=== PATIENT | male | born 1985 | race American Indian/Alaskan Native ===

== ENCOUNTER 2017-07-12 09:52 | Emergency (ER) | payer MEDICAID, OTHER ==
[2017-07-12 11:53] VITALS: BP 148/78
--- NOTE | 2017-07-12 13:32 | CT ---
INDICATION: Trauma, loss of consciousness, fall. CT HEAD WITHOUT CONTRAST: Serial contiguous 2.5 and 5-mm sections were obtained through the brain without contrast, 07/12/2017. Findings were compared with 01/04/2013. Total Exam DLP = 949.36 mGy-cm. Thickening of the lining of the right maxillary antrum is noted with thickening of the lining of the posterior wall of the left frontal air cell and, minimally , a few left ethmoidal air cells anteriorly. No gross air-fluid levels or complete opacifications were noted. Paranasal sinuses were otherwise well aerated, as were the right mastoid air cells. The left mastoid air cells are relatively minimal in number, but otherwise unremarkable. No definite cranial fracture site was identified. No shift of midline structures, ventricular abnormalities, significant interval change, or abnormal areas of density were identified. No bleeding site or hematoma was seen. No gross orbital abnormality was seen. IMPRESSION: No acute intracranial abnormality or significant interval change compared with 2012. Relatively minor changes in the paranasal sinuses, some of which were present on the previous examination. Report was called to Dr. Killian at 1138 hours, 07/12/2017. [facility]
--- NOTE | 2017-07-12 13:33 | CT ---
INDICATION: Trauma, loss of consciousness, fall. CT CERVICAL SPINE: Spiral 2.5-mm axial sections were obtained through the cervical spine with sagittal and coronal reconstructions, 07/12/2017. No comparison study was available. Total Exam DLP = 495.83 mGy-cm. Prevertebral space and bone density appear to be normal. The C6-7 level and C7-T1 levels are not as well visualized, as the more cranial levels, due to the large shoulders. There does appear to be slight decrease in disk space at C6-7 with hypertrophic degenerative changes posteriorly producing a mild degree of spinal stenosis at that level. A definite acute fracture or dislocation was not identified, with the odontoid, atlas, and axis intact in appearance. Neural foramina were widely patent. Vertebral elements are well aligned. The apical lung was minimally visualized, appearing normal. IMPRESSION: 1. No acute fracture or dislocation. 2. Degenerative changes and disk disease with relatively minimal spinal stenosis at C6-7. Report was called to Dr. Killian at 1138 hours, 07/12/2017. [facility]
--- NOTE | 2017-07-12 13:37 | CT ---
INDICATION: Trauma, loss of consciousness, fall. CT THORACIC SPINE: Spiral 2.5-mm axial sections were obtained through the thoracic spine with sagittal and coronal reconstructions 07/12/2017. No comparison studies were available. Total Exam DLP = 2108.76 mGy-cm. No evidence of pneumothorax was identified. A minimal dextroconvex scoliosis of the upper middle thoracic spine is noted. Hypertrophic degenerative changes are noted laterally off upper middle and lower middle, as well as lower thoracic vertebral bodies, and also off the anterior aspects with bridging hyperostotic appearance at these levels. The most severe changes are in the lower thoracic spine. Disk spaces appear to be fairly well maintained, as are vertebral body heights. No definite acute fracture or dislocation is identified. Vertebral elements appear to be normally aligned. There is noted mild narrowing of neural foramina at a few of the lower thoracic levels due to hypertrophic spurring off posterior elements. IMPRESSION: 1. No acute fracture or dislocation. 2. Degenerative changes with hypertrophic lipping at T3-4, T8 through T12, most severe changes at the T8 through T12 levels, and impingement on neural foramina at T9-10, and to a lesser extent T10-11. Report was called to Dr. Killian at 1138 hours, 07/12/2017. [facility]
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
== END 2017-07-12 12:00 | disposition home or self-care (01) ==
LOC: FB.ED 09:52
DX: S06.0X0A Concussion without loss of consciousness, initial encounter (principal); S16.1XXA Strain of muscle, fascia and tendon at neck level, initial encounter; S29.012A Strain of muscle and tendon of back wall of thorax, initial encounter; I10 Essential (primary) hypertension; F17.200 Nicotine dependence, unspecified, uncomplicated; E66.9 Obesity, unspecified; Z68.42 Body mass index [BMI] 45.0-49.9, adult; Z98.890 Other specified postprocedural states; Z88.6 Allergy status to analgesic agent; Z88.5 Allergy status to narcotic agent; X58.XXXA Exposure to other specified factors, initial encounter; Y92.219 Unspecified school as the place of occurrence of the external cause; Y99.0 Civilian activity done for income or pay
CPT/HCPCS: 70450; 72125; 72128; 99284

== ENCOUNTER 2017-09-27 15:38 | Emergency (ER) | payer MEDICAID, OTHER ==
[2017-09-27 15:52] VITALS: BP 145/85
--- NOTE | 2017-09-27 16:10 | EDM.PDOC ---
ED HPI GENERAL MEDICAL PROBLEM - General Chief Complaint: ENT Problem Stated Complaint: BROKEN TOOTH-PAIN Time Seen by Provider: 09/27/17 16:00 Source of Information: Reports: Patient History Limitations: Reports: No Limitations - History of Present Illness INITIAL COMMENTS - FREE TEXT/NARRATIVE: Patient is a 31 year old man who had a right upper filling fall out of one of his right upper molars 1 hour ago. Now he is having pain. No fever or chills or other complaints. Onset: Today Onset Date: 09/27/17 Onset Time: 15:00 Duration: Hour(s): (1) Location: Reports: Face (Mouth: Right upper molar.) Quality: Reports: Ache Severity: Moderate Improves with: Reports: None Worsens with: Reports: None Context: Reports: Other (Multiple carious teeth.) Associated Symptoms: Reports: No Other Symptoms Treatments [employer]: Reports: Acetaminophen Right Upper Oral/Mouth Pain Score (Numeric/FACES): 8 - Related Data Allergies Allergy/AdvReac Type Severity Reaction Status Date / Time acetaminophen Allergy Stomach Verified 09/27/17 15:43 [From Tylenol-Codeine #3] Ache codeine phosphate Allergy Stomach Verified 09/27/17 15:43 [From Tylenol-Codeine #3] Ache ketorolac tromethamine Allergy Stomach Verified 09/27/17 15:43 [From Toradol] Upset tramadol Allergy Vomiting Verified 09/27/17 15:43 Home Meds: Home Meds Gabapentin [Neurontin] 900 mg PO TID 03/10/16 [History] Citalopram [Celexa] 20 mg PO DAILY 06/11/16 [History] Amoxicillin 500 mg PO TID 10 Days #30 tab 09/27/17 [Rx] Past Medical History - Past Health History Medical/Surgical History: Denies Medical/Surgical History Cardiovascular History: Reports: Hypertension Respiratory History: Reports: Asthma Musculoskeletal History: Reports: Fracture Neurological History: Reports: Neuropathy, Peripheral, Other (See Below) Other Neuro History: 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 Psychiatric History: Reports: Depression Social & Family History - Family History Family Medical History: Noncontributory - Tobacco Use Smoking Status *Q: Current Every Day Smoker Years of Tobacco use: 20 Packs/Tins Daily: 1 Used Tobacco, but Quit: No Second Hand Smoke Exposure: Yes - Caffeine Use Caffeine Use: Reports: Soda - Alcohol Use Days Per Week of Alcohol Use: 0 - Recreational Drug Use Recreational Drug Use: No Drug Use in Last 12 Months: Yes Recreational Drug Type: Reports: Marijuana/Hashish Recreational Drug Use Frequency: Weekly - Living Situation & Occupation Living situation: Reports: Single, Other ED ROS ENT - Review of Systems Review Of Systems: See Below Constitutional: Reports: No Symptoms HEENT: Reports: Dental Pain Respiratory: Reports: No Symptoms Cardiovascular: Reports: No Symptoms Endocrine: Reports: No Symptoms GI/Abdominal: Reports: No Symptoms : Reports: No Symptoms Musculoskeletal: Reports: No Symptoms Skin: Reports: No Symptoms Neurological: Reports: No Symptoms Psychiatric: Reports: No Symptoms Hematologic/Lymphatic: Reports: No Symptoms Immunologic: Reports: No Symptoms ED EXAM, ENT - Physical Exam Exam: See Below Exam Limited By: No Limitations General Appearance: Alert, WD/WN, No Apparent Distress Eye Exam: Bilateral Eye: EOMI, Normal Fundi, Normal Inspection, PERRL Ears: Normal External Exam, Normal Canal, Hearing Grossly Normal, Normal TMs Nose: Normal Inspection, Normal Mucousa, No Blood Mouth/Throat: Dental Abcess, Dental Pain, Dental Tenderness, Dental Trauma Head: Atraumatic, Normocephalic Neck: Normal Inspection Respiratory/Chest: No Respiratory Distress, Lungs Clear, Normal Breath Sounds, No Accessory Muscle Use, Chest Non-Tender Cardiovascular: Normal Peripheral Pulses, Regular Rate, Rhythm, No Edema, No Gallop, No JVD, No Murmur, No Rub GI/Abdominal: Normal Bowel Sounds, Soft, Non-Tender, No Organomegaly, No Distention, No Abnormal Bruit, No Mass Back: Normal Inspection, Full Range of Motion Extremities: Normal Inspection, Normal Range of Motion, Non-Tender, No Pedal Edema, Normal Capillary Refill Neurological: Alert Course - Vital Signs Text/Narrative:: Unremarkable ED course. He is allergic to NSAIDS, Tramadol and Narcotics. He will be put on Amoxicillin 500 mg po tid x 10 days, #30, no refills. Recheck in 2-3 days or prn. He will follow up with his PCP today for pain medications. Last Recorded V/S: Last Vital Signs Temp 37.2 C 09/27/17 15:51 Pulse 113 H 09/27/17 15:51 Resp 20 09/27/17 15:51 BP 145/85 H 09/27/17 15:51 Pulse Ox 98 09/27/17 15:51 Departure - Departure Time of Disposition: 16:16 Disposition: Home, Self-Care 01 Condition: Good Clinical Impression: Dental abscess, Nonrestorable carious tooth - Discharge Information Referrals: PCP,None [Primary Care Provider] -
== END 2017-09-27 16:28 | disposition home or self-care (01) ==
LOC: FB.ED 15:38
DX: K04.7 Periapical abscess without sinus (principal); K02.9 Dental caries, unspecified; F17.210 Nicotine dependence, cigarettes, uncomplicated; I10 Essential (primary) hypertension; J45.909 Unspecified asthma, uncomplicated; Z79.899 Other long term (current) drug therapy; Z88.6 Allergy status to analgesic agent; Z88.5 Allergy status to narcotic agent
CPT/HCPCS: 99282

== ENCOUNTER 2018-01-03 17:12 | Emergency (ER) | payer MEDICAID ==
[2018-01-03 17:25] VITALS: BP 148/91
--- NOTE | 2018-01-03 17:51 | EDM.PDOC ---
ED HPI GENERAL MEDICAL PROBLEM - General Chief Complaint: General Stated Complaint: DENTAL PAIN Time Seen by Provider: 01/03/18 17:25 Source of Information: Reports: Patient History Limitations: Reports: No Limitations - History of Present Illness INITIAL COMMENTS - FREE TEXT/NARRATIVE: 32 y.o.NA male came to hour ED a few hours after he was seen by his dentist who diagnosed him with a tooth abscess. Pt is on Abx, Motrin and "stronger pain meds ". Pt stated he feels the abscess is draining and his right facial swelling is improving but his pain is till severe, unbearable. No N/V/D or other acute medical issues. BP 148/91 pulse 78 temp 37.1 RR 18 Pulse ox 98% on RA. Onset Date: 12/27/17 Onset Time: 08:00 Duration: Day(s):, Getting Worse Location: Reports: Face Quality: Reports: Ache, Burning, Dull, Pressure Severity: Mild Improves with: Reports: Medication Worsens with: Reports: Movement Context: Reports: Other (abscessed tooth) Right Oral/Mouth Pain Score (Numeric/FACES): 6 - Related Data Allergies Allergy/AdvReac Type Severity Reaction Status Date / Time acetaminophen Allergy Stomach Verified 01/03/18 17:23 [From Tylenol-Codeine #3] Ache codeine phosphate Allergy Stomach Verified 01/03/18 17:23 [From Tylenol-Codeine #3] Ache ketorolac tromethamine Allergy Stomach Verified 01/03/18 17:23 [From Toradol] Upset tramadol Allergy Vomiting Verified 01/03/18 17:23 Home Meds: Home Meds Gabapentin [Neurontin] 900 mg PO TID 03/10/16 [History] Citalopram [Celexa] 20 mg PO DAILY 06/11/16 [History] Hydrocodone/Acetaminophen [[place] 7.5-325 Tablet] 1 each PO DAILY PRN #3 tablet 01/03/18 [Rx] Past Medical History - Past Health History Medical/Surgical History: Denies Medical/Surgical History Cardiovascular History: Reports: Hypertension Respiratory History: Reports: Asthma Musculoskeletal History: Reports: Fracture Neurological History: Reports: Neuropathy, Peripheral, Other (See Below) Other Neuro History: 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 Psychiatric History: Reports: Depression - Past Surgical History HEENT Surgical History: Reports: Oral Surgery Social & Family History - Family History Family Medical History: Noncontributory - Tobacco Use Smoking Status *Q: Current Every Day Smoker Years of Tobacco use: 20 Packs/Tins Daily: 0.5 Used Tobacco, but Quit: No Second Hand Smoke Exposure: Yes - Caffeine Use Caffeine Use: Reports: Soda - Alcohol Use Days Per Week of Alcohol Use: 0 - Recreational Drug Use Recreational Drug Use: No Drug Use in Last 12 Months: Yes Recreational Drug Type: Reports: Marijuana/Hashish Recreational Drug Use Frequency: Weekly - Living Situation & Occupation Living situation: Reports: Single, Other ED ROS GENERAL - Review of Systems Review Of Systems: See Below Constitutional: Reports: No Symptoms HEENT: Reports: Dental Pain Respiratory: Reports: No Symptoms Cardiovascular: Reports: No Symptoms Endocrine: Reports: No Symptoms GI/Abdominal: Reports: No Symptoms : Reports: No Symptoms Musculoskeletal: Reports: No Symptoms Skin: Reports: No Symptoms Neurological: Reports: No Symptoms Psychiatric: Reports: No Symptoms Hematologic/Lymphatic: Reports: No Symptoms Immunologic: Reports: No Symptoms ED EXAM, GENERAL - Physical Exam Exam: See Below Exam Limited By: No Limitations General Appearance: Alert, WD/WN, Mild Distress, Moderate Distress Eye Exam: Bilateral Eye: Normal Inspection Ears: Normal External Exam Ear Exam: Bilateral Ear: Auricle Normal Nose: Normal Inspection, Normal Mucosa Throat/Mouth: Other (thhoth abscessed) Head: Atraumatic, Facial Swelling Neck: Normal Inspection Respiratory/Chest: No Respiratory Distress, Lungs Clear, Normal Breath Sounds, No Accessory Muscle Use, Chest Non-Tender Cardiovascular: Normal Peripheral Pulses, Regular Rate, Rhythm, No Edema, No Gallop, No JVD, No Murmur, No Rub Peripheral Pulses: 1+: Radial (R) GI/Abdominal: Normal Bowel Sounds (Male) Exam: Deferred Rectal (Males) Exam: Deferred Back Exam: Normal Inspection, Full Range of Motion Extremities: Normal Inspection, Normal Range of Motion, Non-Tender, No Pedal Edema, Normal Capillary Refill Neurological: Alert, Oriented, CN II-XII Intact, Normal Cognition, Normal Gait, No Motor/Sensory Deficits Psychiatric: Normal Affect, Normal Mood Skin Exam: Warm, Dry, Intact, Normal Color, No Rash Lymphatic: No Adenopathy Course - Vital Signs Text/Narrative:: 32 y.o.NA male came to hour ED a few hours after he was seen by his dentist who diagnosed him with a tooth abscess. Pt is on Abx, Motrin and "stronger pain meds ". Pt stated he feels the abscess is draining and his right facial swelling is improving but his pain is till severe, unbearable. No N/V/D or other acute medical issues. BP 148/91 pulse 78 temp 37.1 RR 18 Pulse ox 98% on RA. RE: Morbid obese NA with R facial swelling and pain, sinus tenderness, on Abx Impression: H/O Sinusitis, S/P tooth extraction, H/O toothabscess, Facial pain Tx: [place] one tabl Reexam: Improved Plan: D/C with instructions Last Recorded V/S: Last Vital Signs Temp 37.0 C 01/03/18 17:25 Pulse 92 01/03/18 17:25 Resp 18 01/03/18 17:25 BP 148/91 H 01/03/18 17:25 Pulse Ox 98 01/03/18 17:25 - Orders/Labs/Meds Meds: Medications Discontinued Medications Generic Name Dose Route Start Last Admin Trade Name Teq PRN Reason Stop Dose Admin Hydrocodone Bitart/Acetaminophen 1 tab 01/03/18 18:44 01/03/18 18:48 [place] 325-5 Mg PO 01/03/18 18:45 1 tab ONETIME STA Administration Departure - Departure Time of Disposition: 17:46 Disposition: Home, Self-Care 01 Condition: Good Clinical Impression: Tooth ache - Discharge Information Prescriptions: Hydrocodone/Acetaminophen [[place] 7.5-325 Tablet] 1 each PO DAILY PRN #3 tablet PRN Reason: severe pain Referrals: Roxana Claero MD [Primary Care Provider] - Forms: ED Department Discharge Additional Instructions: Please cont yoiur Abx, Motrin etx and f/u with your Dentist, come back if your symptoms get worse acutely
[2018-01-03] MEDS ORDERED: Acetaminophen/HYDROcodone 325-5 MG Tab PO STA (18:44)
== END 2018-01-03 17:55 | disposition home or self-care (01) ==
LOC: FB.ED 17:12
DX: K08.89 Other specified disorders of teeth and supporting structures (principal); K08.409 Partial loss of teeth, unspecified cause, unspecified class; I10 Essential (primary) hypertension; G62.9 Polyneuropathy, unspecified; F17.210 Nicotine dependence, cigarettes, uncomplicated; Z87.09 Personal history of other diseases of the respiratory system; Z88.6 Allergy status to analgesic agent; Z88.5 Allergy status to narcotic agent; Z88.8 Allergy status to other drugs, medicaments and biological substances; Z79.899 Other long term (current) drug therapy
CPT/HCPCS: 99283; A9270

== ENCOUNTER 2018-01-28 16:48 | Emergency (ER) | payer MEDICAID ==
[2018-01-28 17:00] VITALS: BP 152/84
--- NOTE | 2018-01-28 17:30 | EDM.PDOC ---
ED HPI GENERAL MEDICAL PROBLEM - General Chief Complaint: General Stated Complaint: TOOTH/JAW PAIN Time Seen by Provider: 01/28/18 17:05 Source of Information: Reports: Patient History Limitations: Reports: No Limitations - History of Present Illness INITIAL COMMENTS - FREE TEXT/NARRATIVE: c/o tooth pain pt at dentist Dr Anderson in [place] 1m ago and had a tooth pulled, as per [place] he filled #10 tabs of HC/apap 5/325 mg on 01/[address] Anderson and #3 tabs of HC/apap 7.5/325 mg on 01/[address] Mcghee he had no other opiates filled in past 1y he does take gabapentin 900 mg tid for chronic nerve pain of R great toe that fx after tire rim fell on it and he had pins x 2 and then fusion pt return to dentist at [facility] today and had another tooth pulled, given Rx for ibuprofen, not sure if it was 600 or 800 mg, he did take one and it did not help, was not given an antb, was not given hydrocodone pt states he had pus draining from the tooth that tooth 2d ago and has inc'd pain in the past 2d Tooth/Teeth Pain Score (Numeric/FACES): 8 - Related Data Allergies Allergy/AdvReac Type Severity Reaction Status Date / Time acetaminophen Allergy Stomach Verified 01/28/18 16:58 [From Tylenol-Codeine #3] Ache codeine phosphate Allergy Stomach Verified 01/28/18 16:58 [From Tylenol-Codeine #3] Ache ketorolac tromethamine Allergy Stomach Verified 01/28/18 16:58 [From Toradol] Upset tramadol Allergy Vomiting Verified 01/28/18 16:58 Home Meds: Home Meds Gabapentin [Neurontin] 900 mg PO TID 03/10/16 [History] Citalopram [Celexa] 20 mg PO DAILY 06/11/16 [History] Amoxicillin 500 mg PO TID #21 tab 01/28/18 [Rx] Hydrocodone/Acetaminophen [Hydrocodon-Acetaminoph 7.5-325] 1 each PO Q6H #5 tablet 01/28/18 [Rx] Past Medical History - Past Health History Medical/Surgical History: Denies Medical/Surgical History Cardiovascular History: Reports: Hypertension Respiratory History: Reports: Asthma Musculoskeletal History: Reports: Fracture Neurological History: Reports: Neuropathy, Peripheral, Other (See Below) Other Neuro History: 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 Psychiatric History: Reports: Depression - Past Surgical History HEENT Surgical History: Reports: Oral Surgery Social & Family History - Family History Family Medical History: Noncontributory - Tobacco Use Smoking Status *Q: Current Every Day Smoker Years of Tobacco use: 20 Packs/Tins Daily: 0.5 Used Tobacco, but Quit: No Second Hand Smoke Exposure: Yes - Caffeine Use Caffeine Use: Reports: Soda - Alcohol Use Days Per Week of Alcohol Use: 0 - Recreational Drug Use Recreational Drug Use: No Drug Use in Last 12 Months: Yes Recreational Drug Type: Reports: Marijuana/Hashish Recreational Drug Use Frequency: Weekly - Living Situation & Occupation Living situation: Reports: Single, Other ED ROS GENERAL - Review of Systems Review Of Systems: See Below Constitutional: Reports: No Symptoms HEENT: Reports: Other (dental pain) Respiratory: Reports: No Symptoms Cardiovascular: Reports: No Symptoms Endocrine: Reports: No Symptoms GI/Abdominal: Reports: No Symptoms : Reports: No Symptoms Musculoskeletal: Reports: No Symptoms Skin: Reports: No Symptoms Neurological: Reports: No Symptoms Psychiatric: Reports: No Symptoms Hematologic/Lymphatic: Reports: No Symptoms Immunologic: Reports: No Symptoms ED EXAM, GENERAL - Physical Exam Exam: See Below Exam Limited By: No Limitations General Appearance: Alert, WD/WN, Mild Distress Nose: Normal Inspection, Normal Mucosa, No Blood Throat/Mouth: Other (tooth #5 missing, no LNs, empty socket, no STS, pt does have a cotton gauze in the tooth) Neck: Normal Inspection, Supple, Non-Tender, Full Range of Motion. No: Lymphadenopathy (R), Lymphadenopathy (L) Respiratory/Chest: No Respiratory Distress Cardiovascular: Regular Rate, Rhythm Course - Vital Signs Last Recorded V/S: Last Vital Signs Temp 36.9 C 01/28/18 16:59 Pulse 95 01/28/18 16:59 Resp 18 01/28/18 16:59 BP 152/84 H 01/28/18 16:59 Pulse Ox 97 01/28/18 16:59 Departure - Departure Time of Disposition: 17:25 Disposition: Home, Self-Care 01 Condition: Good Clinical Impression: Pain, dental - Discharge Information Prescriptions: Amoxicillin 500 mg PO TID #21 tab Hydrocodone/Acetaminophen [Hydrocodon-Acetaminoph 7.5-325] 1 each PO Q6H #5 tablet Instructions: Dental Extraction, [id number], Dental Extraction, Dental Abscess Referrals: PCP,None [Primary Care Provider] - Forms: ED Department Discharge Additional Instructions: For pain, continue the ibuprofen 3-4 times a day as prescribed for the next several days. For pain, as needed, take hydrocodone with acetaminophen 7.5/325 mg 1 tab every 6 hours. No alcohol. For infection, take amoxicillin 500 mg 1 tab 3 times a day. Use ice for 10 minutes every 2 hours as needed. Call your Physician or Return to Emergency Department if: * Your condition worsens in any way. * You develop fever greater than 100.4. * You have vomiting that does not stop with medications. * You have pain that is not controlled with medications.
== END 2018-01-28 17:30 | disposition home or self-care (01) ==
LOC: FB.ED 16:48
DX: K08.89 Other specified disorders of teeth and supporting structures (principal); I10 Essential (primary) hypertension; F17.210 Nicotine dependence, cigarettes, uncomplicated; Z79.899 Other long term (current) drug therapy; Z88.5 Allergy status to narcotic agent
CPT/HCPCS: 99283

== ENCOUNTER 2019-01-30 18:22 | Emergency (ER) | payer MEDICAID, OTHER ==
[2019-01-30 19:05] VITALS: BP 146/86
[2019-01-30] MEDS ORDERED: Acetaminophen 500 MG Tab PO ONE (19:39)
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
== END 2019-01-30 21:25 | disposition home or self-care (01) ==
LOC: FB.ED 18:22
DX: T75.4XXA Electrocution, initial encounter (principal); S09.90XA Unspecified injury of head, initial encounter; R07.89 Other chest pain; F17.210 Nicotine dependence, cigarettes, uncomplicated; I10 Essential (primary) hypertension; J45.909 Unspecified asthma, uncomplicated; F41.9 Anxiety disorder, unspecified; F32.9 Major depressive disorder, single episode, unspecified; Z79.899 Other long term (current) drug therapy; Z88.5 Allergy status to narcotic agent; Z88.6 Allergy status to analgesic agent; Z88.8 Allergy status to other drugs, medicaments and biological substances; W86.8XXA Exposure to other electric current, initial encounter
CPT/HCPCS: 36415; 70450; 71046; 72125; 80053; 84484; 85025; 85610; 93005; 99285-25; A9270-GY

== ENCOUNTER 2019-03-23 20:01 | Emergency (ER) | payer MEDICAID ==
[2019-03-23] MEDS ORDERED: Acetaminophen/HYDROcodone 325-5 MG Tab PO ONE ×2 (20:02→22:33)
[2019-03-23] MEDS ORDERED: Lidocaine 1% 20 ML MDV INJECT ONE (21:53)
[2019-03-23] MEDS ORDERED: Cephalexin 500 MG Cap PO ONE (22:28)
--- NOTE | 2019-03-23 22:34 | EDM.PDOC ---
ED HPI GENERAL MEDICAL PROBLEM - General Stated Complaint: TOE INFECTION Time Seen by Provider: 03/23/19 21:05 Source of Information: Reports: Patient History Limitations: Reports: No Limitations - History of Present Illness INITIAL COMMENTS - FREE TEXT/NARRATIVE: 33-year-old male with what he felt was the beginning of an ingrown nail on his left great toe. His pulled a portion of the lateral aspect of the nail off on Saturday of this last week and since that time he has had increasing pain and increasing redness in the left great toe. Now he has pain and some redness that extends into the distal top of the left foot. He has had no fevers or chills. His had no nausea or vomiting. He rates the pain as a 7/10. It is a sharp pain that shoots up his foot and is sore in the top of his foot. No nausea or vomiting. He's been eating and drinking normally. His 5-year-old child stepped on his left great toe tonight and that made the pain much worse and prompted him to come in for evaluation. There are no other associated signs or symptoms. There are no other modifying factors. Onset: Other (As above) Duration: Getting Worse Location: Reports: Lower Extremity, Left (Left great toe and foot) Quality: Reports: Sharp (And shooting) Severity: Moderate Improves with: Reports: Rest Worsens with: Reports: Other (Palpation), Movement Context: Reports: Other (Not applicable) Associated Symptoms: Reports: Other (Redness in the left foot) Treatments BUSINESS SERVICES MANAGER: Reports: Other (see below) (Nothing) - Related Data Allergies Allergy/AdvReac Type Severity Reaction Status Date / Time codeine phosphate Allergy Stomach Verified 10/14/18 16:35 [From Tylenol-Codeine #3] Ache ketorolac tromethamine Allergy Stomach Verified 10/14/18 16:35 [From Toradol] Upset lisinopril Allergy Cough Verified 10/21/18 18:00 tramadol Allergy Vomiting Verified 10/14/18 16:35 Home Meds: Home Meds Gabapentin [Neurontin] 900 mg PO TID 03/10/16 [History] DULoxetine [Cymbalta] 60 mg PO DAILY 10/12/18 [History] Losartan/Hydrochlorothiazide [Losartan-HCTZ 100-12.5 MG] 1 each PO DAILY [History] Hydrocodone/Acetaminophen [[place] 5-325 Tablet] 1 each PO Q6HR #10 tablet [Rx] Cephalexin [Keflex] 1,000 mg PO TID 7 Days #42 capsule 03/23/19 [Rx] Mupirocin Oint [Bactroban Oint] 22 gm TP BID #1 tube 03/23/19 [Rx] Past Medical History Cardiovascular History: Reports: Hypertension Respiratory History: Reports: Asthma Gastrointestinal History: Reports: PUD Musculoskeletal History: Reports: Fracture Other Musculoskeletal History: fx R gt toe Neurological History: Reports: Concussion, Neuropathy, Peripheral (On gabapentin ), Other (See Below) Other Neuro History: 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 Psychiatric History: Reports: Anxiety, Depression, Panic Attack Endocrine/Metabolic History: Reports: Obesity/BMI 30+ - Infectious Disease History Infectious Disease History: Reports: Chicken Pox, MRSA - Past Surgical History HEENT Surgical History: Reports: Oral Surgery Musculoskeletal Surgical History: Reports: Other (See Below) Other Musculoskeletal Surgeries/Procedures:: r toe surgery Social & Family History - Tobacco Use Smoking Status *Q: Unknown Ever Smoked (Nonsmoker) - Caffeine Use Caffeine Use: Reports: Soda - Alcohol Use Alcohol Use History: Yes Alcohol Use in Last Twelve Months: Yes Alcohol Use Comment: Patient reports he is an alcoholic and has had no use for the past 6-8 months. - Living Situation & Occupation Living situation: Reports: Single ED ROS GENERAL - Review of Systems Review Of Systems: See Below Constitutional: Reports: No Symptoms HEENT: Reports: No Symptoms Respiratory: Reports: No Symptoms Cardiovascular: Reports: No Symptoms GI/Abdominal: Reports: No Symptoms : Reports: No Symptoms Musculoskeletal: Reports: Other (Left great toe pain with redness) Skin: Reports: Other (Redness of left great toe that extends into the top of the left foot.) Neurological: Reports: No Symptoms Hematologic/Lymphatic: Reports: No Symptoms Immunologic: Reports: No Symptoms ED EXAM, GENERAL - Physical Exam Exam: See Below Exam Limited By: No Limitations General Appearance: Alert, Mild Distress, Obese Eye Exam: Bilateral Eye: EOMI, Normal Inspection, PERRL Ears: Normal External Exam, Hearing Grossly Normal Nose: Normal Inspection, Normal Mucosa, No Blood Throat/Mouth: Normal Inspection, Normal Voice, No Airway Compromise Head: Atraumatic, Normocephalic Neck: Normal Inspection Respiratory/Chest: No Respiratory Distress, Lungs Clear, Normal Breath Sounds, No Accessory Muscle Use, Chest Non-Tender Cardiovascular: Normal Peripheral Pulses, Regular Rate, Rhythm, No JVD Peripheral Pulses: 2+: Dorsalis Pedis (L) GI/Abdominal: Normal Bowel Sounds, Soft, Non-Tender Back Exam: Normal Inspection Extremities: Other (Tenderness of great toe with ingrown nail and erythema. The erythema extends to the top of the left foot. There is no crepitus. There is no subcutaneous emphysema.) Neurological: Alert, Oriented, CN II-XII Intact, Normal Cognition, No Motor/ Sensory Deficits Lymphatic: No Adenopathy ED GENERAL MEDICAL PROCEDURES - Additional/Other Procedure(s) Other (Free Text) Procedure(s): After informed verbal consent was obtained from the patient, the left great toe was anesthetized doing both a digital block and local anesthesia using 1% lidocaine 8 mL's. There was good anesthesia no complications. The toe was then prepped with Betadine. The lateral one fourth of the toenail was elevated and using iris scissors was dissected and removed. The area was then opened up using hemostats. No pus was expressed. The area was then copiously irrigated with a 9/10 normal saline. The patient tolerated this well. There were no apparent complications. An appropriate supportive dressing was applied by the nursing staff. Course - Orders/Labs/Meds Labs: Laboratory Tests 03/23/19 03/23/19 03/23/19 Range/Units 21:30 21:30 21:30 WBC 10.1 (4.5-12.0) X10-3/uL RBC 5.54 (4.30-5.75) x10(6)uL Hgb 15.9 (13.5-17.8) g/dL Hct 46.9 (30.0-51.3) % MCV 84.7 (80-96) fL MCH 28.7 (27.7-33.6) pg MCHC 33.9 (32.2-35.4) g/dL RDW 13.0 (11.5-15.5) % Plt Count 276 (125-369) X10(3)uL MPV 8.1 (7.4-10.4) fL Neut % (Auto) 62.8 (46-82) % Lymph % (Auto) 27.4 (13-37) % [place] % (Auto) 5.6 (4-12) % Eos % (Auto) 4 (1.0-5.0) % Baso % (Auto) 1 (0-2) % Neut # (Auto) 6.2 (1.6-8.3) # Lymph # (Auto) 2.8 (0.6-5.0) # [place] # (Auto) 0.6 (0.0-1.3) # Eos # (Auto) 0.4 (0.0-0.8) # Baso # (Auto) 0.1 (0.0-0.2) # Sodium 141 (135-145) mmol/L Potassium 4.2 (3.5-5.3) mmol/L Chloride 103 (100-110) mmol/L Carbon Dioxide 29 (21-32) mmol/L BUN 26 H (7-18) mg/dL Creatinine 1.3 (0.70-1.30) mg/dL Est Cr Clr Drug Dosing TNP Estimated GFR (MDRD) > 60 (>60) BUN/Creatinine Ratio 20.0 (9-20) Glucose 102 (80-116) mg/dL Calcium 9.3 (8.6-10.2) mg/dL C-Reactive Protein 0.6 (0.5-0.9) mg/dL Meds: Medications Discontinued Medications Generic Name Dose Route Start Last Admin Trade Name Freq PRN Reason Stop Dose Admin Hydrocodone Bitart/Acetaminophen 2 tab 03/23/19 22:33 03/23/19 22:38 [place] 325-5 Mg PO 03/23/19 22:34 2 tab ONETIME ONE Administration Hydrocodone Bitart/Acetaminophen Confirm 03/23/19 22:40 03/23/19 22:47 [place] 325-5 Mg Administered 03/23/19 22:41 Not Given Dose 1 tab .ROUTE .STK-MED ONE Cephalexin 1,000 mg 03/23/19 22:28 03/23/19 22:41 Keflex PO 03/23/19 22:29 1,000 mg ONETIME ONE Administration Lidocaine HCl 20 ml 03/23/19 21:53 Xylocaine 1% INJECT 03/23/19 21:54 ONETIME ONE Departure - Departure Time of Disposition: 22:30 Disposition: Home, Self-Care 01 Condition: Good Clinical Impression: Ingrown left greater toenail, Cellulitis of left foot - Discharge Information Prescriptions: Cephalexin [Keflex] 1,000 mg PO TID 7 Days #42 capsule Mupirocin Oint [Bactroban Oint] 22 gm TP BID #1 tube Instructions: Cellulitis, Adult, Fingernail or Toenail Removal, Adult Referrals: PCP,None [Primary Care Provider] - Additional Instructions: You had an ingrown left great toenail with an associated infection called a cellulitis. I removed one fourth of your toenail (the ingrown portion). You should clean this wound soap and water and apply the Bactroban ointment to it twice daily. Medication as prescribed (Keflex, hydrocodone 5/325). You should take probiotics or eat yogurt daily while you are on the antibiotics. Follow-up with your primary doctor as needed. Back to the emergency department for marked increase in pain, increasing or spreading redness, high fever or any other concerning sign or symptom.
[2019-03-23] MEDS ORDERED: Acetaminophen/HYDROcodone 325-5 MG Tab ONE (22:40)
[2019-03-24 10:21] VITALS: BP 144/87
== END 2019-03-23 23:00 | disposition home or self-care (01) ==
LOC: FB.ED 20:01
DX: L60.0 Ingrowing nail (principal); I10 Essential (primary) hypertension; J45.909 Unspecified asthma, uncomplicated; Z88.5 Allergy status to narcotic agent; Z88.8 Allergy status to other drugs, medicaments and biological substances; Z79.899 Other long term (current) drug therapy
CPT/HCPCS: 11750; 36415; 80048; 85025; 86140; 99283; A9270

== ENCOUNTER 2019-05-06 20:21 | Emergency (ER) | payer MEDICAID ==
[2019-05-06] MEDS ORDERED: Acetaminophen/HYDROcodone 325-5 MG Tab PO ONE (20:22)
[2019-05-06 20:40] VITALS: BP 147/83
--- NOTE | 2019-05-06 20:56 | EDM.PDOC ---
ED HPI GENERAL MEDICAL PROBLEM - General Chief Complaint: ENT Problem Stated Complaint: TOOTHACHE Time Seen by Provider: 05/06/19 20:51 Source of Information: Reports: Patient History Limitations: Reports: No Limitations - History of Present Illness INITIAL COMMENTS - FREE TEXT/NARRATIVE: Complains of left upper dental pain after clenched teeth because he became upset. Took advil w/o improvement. Patient requests stronger pain medication until he can follow up with a dentist tomorrow. 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 Pain Score (Numeric/FACES): 8 - Related Data Allergies Allergy/AdvReac Type Severity Reaction Status Date / Time codeine phosphate Allergy Stomach Verified 03/24/19 10:42 [From Tylenol-Codeine #3] Ache ketorolac tromethamine Allergy Stomach Verified 03/24/19 10:42 [From Toradol] Upset lisinopril Allergy Cough Verified 03/24/19 10:42 tramadol Allergy Vomiting Verified 03/24/19 10:42 Home Meds: Home Meds Gabapentin [Neurontin] 900 mg PO TID 03/10/16 [History] Losartan/Hydrochlorothiazide [Losartan-HCTZ 100-12.5 MG] 1 each PO DAILY [History] Cephalexin [Keflex] 1,000 mg PO TID 7 Days #42 capsule 03/23/19 [Rx] Mupirocin Oint [Bactroban Oint] 22 gm TP BID #1 tube 03/23/19 [Rx] Gabapentin [Neurontin] 900 mg PO TID 03/24/19 [History] Venlafaxine HCl [Venlafaxine ER] 75 mg PO DAILY 03/24/19 [History] busPIRone [Buspar] 10 mg PO TID 03/24/19 [History] Past Medical History Cardiovascular History: Reports: Hypertension Respiratory History: Reports: Asthma Gastrointestinal History: Reports: PUD Musculoskeletal History: Reports: Fracture Other Musculoskeletal History: fx R gt toe Neurological History: Reports: Concussion, Neuropathy, Peripheral, Other (See Below) Other Neuro History: 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 Psychiatric History: Reports: Anxiety, Depression, Panic Attack Endocrine/Metabolic History: Reports: Obesity/BMI 30+ - Infectious Disease History Infectious Disease History: Reports: Chicken Pox, MRSA - Past Surgical History HEENT Surgical History: Reports: Oral Surgery Musculoskeletal Surgical History: Reports: Other (See Below) Other Musculoskeletal Surgeries/Procedures:: r toe surgery Social & Family History - Family History Family Medical History: Noncontributory - Tobacco Use Smoking Status *Q: Former Smoker Used Tobacco, but Quit: Yes Month/Year Tobacco Last Used: 02/2019 - Caffeine Use Caffeine Use: Reports: Soda - Recreational Drug Use Recreational Drug Use: No - Living Situation & Occupation Living situation: Reports: Single ED ROS ENT - Review of Systems Review Of Systems: ROS reveals no pertinent complaints other than HPI. ED EXAM, ENT - Physical Exam Exam: See Below Exam Limited By: No Limitations General Appearance: Alert, WD/WN, No Apparent Distress Ears: Normal External Exam Nose: Normal Inspection Mouth/Throat: Dental Pain (tooth #11, no fractures or caries noted.) Head: Atraumatic, Normocephalic Neck: Supple Respiratory/Chest: No Respiratory Distress Neurological: Alert, Normal Cognition, No Motor/Sensory Deficits Psychiatric: Normal Affect, Normal Mood Skin: Warm, Dry, Intact Course - Vital Signs Last Recorded V/S: Last Vital Signs Temp 37.1 C 05/06/19 20:21 Pulse 118 H 05/06/19 20:21 Resp 17 05/06/19 20:21 BP 147/83 H 05/06/19 20:21 Pulse Ox 96 05/06/19 20:21 - Re-Assessments/Exams Free Text/Narrative Re-Assessment/Exam: 05/06/19 20:54 Sent home with Piedad Gardiner/Syed #[id number], to take 1-2 tabs q6h as needed for pain. Departure - Departure Time of Disposition: 20:55 Disposition: Home, Self-Care 01 Condition: Good Clinical Impression: Pain, dental - Discharge Information *PRESCRIPTION DRUG MONITORING PROGRAM REVIEWED*: Yes *COPY OF PRESCRIPTION DRUG MONITORING REPORT IN PATIENT VALERIE: No Referrals: PCP,Unknown [Primary Care Provider] - Additional Instructions: Continue Advil, may also take Hydocodone in addition as needed to control pain. Follow up with a Dentist tomorrow.
== END 2019-05-06 21:01 | disposition home or self-care (01) ==
LOC: FB.ED 20:21
DX: K08.89 Other specified disorders of teeth and supporting structures (principal); I10 Essential (primary) hypertension; F41.9 Anxiety disorder, unspecified; F32.9 Major depressive disorder, single episode, unspecified; J45.909 Unspecified asthma, uncomplicated; Z87.891 Personal history of nicotine dependence; Z79.899 Other long term (current) drug therapy; Z88.5 Allergy status to narcotic agent; Z88.6 Allergy status to analgesic agent; Z88.8 Allergy status to other drugs, medicaments and biological substances
CPT/HCPCS: 99282; A9270-GY

== ENCOUNTER 2019-05-14 11:23 | Emergency (ER) | payer MEDICAID ==
[2019-05-14] MEDS ORDERED: Acetaminophen/HYDROcodone 325-5 MG Tab PO ONE (11:24)
[2019-05-14] MEDS ORDERED: Clindamycin HCl 150 MG Cap PO ONE (12:51)
--- NOTE | 2019-05-14 12:54 | EDM.PDOC ---
ED HPI GENERAL MEDICAL PROBLEM - General Chief Complaint: General Stated Complaint: TOOTH PAIN Time Seen by Provider: 05/14/19 12:35 Source of Information: Reports: Patient History Limitations: Reports: No Limitations - History of Present Illness INITIAL COMMENTS - FREE TEXT/NARRATIVE: 33-year-old male with left upper dental pain off and on for the past month. He was placed on antibiotics about a month ago and his pain went away but he try to see a dentist and was not able to see one he was okay until about a week or so ago when he developed pain after clenching his teeth and feeling a crack and that same tooth in his left upper jaw since that time he has had intermittent pains in his been as high as 8/10 level of pain yesterday he states he was eating some chicken and he chewed and the pain has been elevated over 10 level since that time. He also has left facial swelling which is developed over the past 24 hours as well. He 69 no trouble swallowing. He is having no trouble breathing. The pain is a sharp, aching and throbbing pain that radiates all over the left side of his face. There are no other associated signs or symptoms. There are no other modifying factors. 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 left tooth Pain Score (Numeric/FACES): 8 - Related Data Allergies Allergy/AdvReac Type Severity Reaction Status Date / Time codeine phosphate Allergy Stomach Verified 05/14/19 11:37 [From Tylenol-Codeine #3] Ache ketorolac tromethamine Allergy Stomach Verified 05/14/19 11:37 [From Toradol] Upset lisinopril Allergy Cough Verified 05/14/19 11:37 tramadol Allergy Vomiting Verified 05/14/19 11:37 Home Meds: Home Meds Gabapentin [Neurontin] 900 mg PO TID 03/10/16 [History] Losartan/Hydrochlorothiazide [Losartan-HCTZ 100-12.5 MG] 1 each PO DAILY [History] Cephalexin [Keflex] 1,000 mg PO TID 7 Days #42 capsule 03/23/19 [Rx] Mupirocin Oint [Bactroban Oint] 22 gm TP BID #1 tube 03/23/19 [Rx] Gabapentin [Neurontin] 900 mg PO TID 03/24/19 [History] Venlafaxine HCl [Venlafaxine ER] 75 mg PO DAILY 03/24/19 [History] busPIRone [Buspar] 10 mg PO TID 03/24/19 [History] Clindamycin HCl 450 mg PO TID 10 Days #90 capsule 05/14/19 [Rx] Past Medical History Cardiovascular History: Reports: Hypertension Respiratory History: Reports: Asthma Gastrointestinal History: Reports: PUD Musculoskeletal History: Reports: Fracture Other Musculoskeletal History: fx R gt toe Neurological History: Reports: Concussion, Neuropathy, Peripheral, Other (See Below) Other Neuro History: 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 Psychiatric History: Reports: Anxiety, Depression, Panic Attack Endocrine/Metabolic History: Reports: Obesity/BMI 30+ - Infectious Disease History Infectious Disease History: Reports: Chicken Pox, MRSA - Past Surgical History HEENT Surgical History: Reports: Oral Surgery Musculoskeletal Surgical History: Reports: Other (See Below) Other Musculoskeletal Surgeries/Procedures:: r toe surgery Social & Family History - Tobacco Use Smoking Status *Q: Current Every Day Smoker Years of Tobacco use: 15 Packs/Tins Daily: 0.5 - Caffeine Use Caffeine Use: Reports: Soda - Recreational Drug Use Recreational Drug Use: No - Living Situation & Occupation Living situation: Reports: Single ED ROS GENERAL - Review of Systems Review Of Systems: See Below Constitutional: Reports: No Symptoms HEENT: Reports: Dental Pain, Other (Facial pain and swelling) Respiratory: Reports: No Symptoms Cardiovascular: Reports: No Symptoms GI/Abdominal: Reports: No Symptoms : Reports: No Symptoms Musculoskeletal: Reports: No Symptoms Skin: Reports: No Symptoms Neurological: Reports: Headache Hematologic/Lymphatic: Reports: No Symptoms Immunologic: Reports: No Symptoms ED EXAM, GENERAL - Physical Exam Exam: See Below Exam Limited By: No Limitations General Appearance: Alert, Moderate Distress, Obese Eye Exam: Bilateral Eye: EOMI, Normal Inspection Ears: Normal External Exam Ear Exam: Bilateral Ear: Auricle Normal Nose: Normal Inspection, Normal Mucosa, No Blood Throat/Mouth: Normal Voice, No Airway Compromise, Inflammation (Around left upper teeth with edema. No fluxion area), Other (Poor dentition) Head: Atraumatic, Normocephalic Neck: Normal Inspection, Supple, Non-Tender, Full Range of Motion Respiratory/Chest: No Respiratory Distress, Lungs Clear, Normal Breath Sounds, No Accessory Muscle Use, Chest Non-Tender Cardiovascular: Normal Peripheral Pulses, Regular Rate, Rhythm, No JVD Peripheral Pulses: 2+: Radial (L), Radial (R) GI/Abdominal: Normal Bowel Sounds, Soft, Non-Tender, No Mass Back Exam: Normal Inspection Extremities: Normal Inspection, Normal Range of Motion, Non-Tender, No Pedal Edema, Normal Capillary Refill Neurological: Alert, Oriented, CN II-XII Intact, Normal Cognition, No Motor/ Sensory Deficits Skin Exam: Warm, Dry, Intact, Ecchymosis Course - Vital Signs Last Recorded V/S: Last Vital Signs Temp 36.5 C 05/14/19 13:09 Pulse 79 05/14/19 13:09 Resp 14 05/14/19 13:09 BP 143/103 H 05/14/19 13:09 Pulse Ox 99 05/14/19 13:09 - Orders/Labs/Meds Meds: Medications Discontinued Medications Generic Name Dose Route Start Last Admin Trade Name Dragan PRN Reason Stop Dose Admin Clindamycin HCl 600 mg 05/14/19 12:51 05/14/19 13:04 Cleocin PO 05/14/19 12:52 600 mg ONETIME ONE Administration - Re-Assessments/Exams Free Text/Narrative Re-Assessment/Exam: 05/14/19 12:48: Patient with carious left upper tooth and facial swelling. He has carious dentition and has had problems with this tooth but has been unable to the see a dentist. I offered a dental block and he refused. I will place patient on clindamycin and give him a take home pack of hydrocodone and told them to see a dentist about this tooth this week. Departure - Departure Time of Disposition: 12:52 Disposition: Home, Self-Care 01 Condition: Good (Stable) Clinical Impression: Dental abscess, Dental caries, Left facial swelling - Discharge Information Prescriptions: Clindamycin HCl 450 mg PO TID 10 Days #90 capsule Instructions: Dental Abscess, [id number] Referrals: PCP,None [Primary Care Provider] - Forms: ED Department Discharge Additional Instructions: You have a dental infection and you need to see a dentist as soon as you can arrange. Medication as prescribed (clindamycin, hydrocodone 5/325). Take probiotics or eat yogurt daily while you are on the antibiotics. Back to the emergency department for swallowing, trouble breathing, high fever, worsening signs or infection or any other concerning sign or symptom.
[2019-05-14 13:10] VITALS: BP 143/103; PULSE 79
== END 2019-05-14 13:15 | disposition home or self-care (01) ==
LOC: FB.ED 11:23
DX: K04.7 Periapical abscess without sinus (principal); I10 Essential (primary) hypertension; F41.9 Anxiety disorder, unspecified; F32.9 Major depressive disorder, single episode, unspecified; E66.9 Obesity, unspecified; F17.210 Nicotine dependence, cigarettes, uncomplicated; Z68.42 Body mass index [BMI] 45.0-49.9, adult; Z88.5 Allergy status to narcotic agent; Z88.8 Allergy status to other drugs, medicaments and biological substances; Z88.6 Allergy status to analgesic agent; Z79.899 Other long term (current) drug therapy
CPT/HCPCS: 99282; A9270

== ENCOUNTER 2019-06-07 20:57 | Emergency (ER) | payer MEDICAID ==
[2019-06-07] MEDS ORDERED: Amoxicillin/Clavulanate K 875-125 MG Tab PO ONE (21:59)
[2019-06-07] MEDS ORDERED: Acetaminophen/oxyCODONE 325-5 MG Tab PO STA (22:00)
--- NOTE | 2019-06-07 22:08 | EDM.PDOC ---
ED HPI GENERAL MEDICAL PROBLEM - General Stated Complaint: TOOTH PAIN Time Seen by Provider: 06/07/19 22:03 Source of Information: Reports: Patient, Family History Limitations: Reports: No Limitations - History of Present Illness INITIAL COMMENTS - FREE TEXT/NARRATIVE: 33 y.o.w.f came to the ed with excruciating pain at his tooth #14/15 for 2 days an Tylenol, Motrin etc will not help. No dircttraum, could not see a dentis this week. No N/V/D or any other acute med issue. BP 148/81 RR 18 Pulse ox 97% on RA Temp 36.6 Pulse 81 Onset Date: 05/29/19 Onset Time: 10:00 Duration: Day(s):, Getting Worse, Intermittent Location: Reports: Face Quality: Reports: Burning, Dull, Pressure, Throbbing Severity: Moderate Improves with: Reports: None Worsens with: Reports: Cold Therapy, Eating, Heat Therapy Context: Reports: Other (poor dentition) Associated Symptoms: Reports: No Other Symptoms L upper jaw Pain Score (Numeric/FACES): 9 - Related Data Allergies Allergy/AdvReac Type Severity Reaction Status Date / Time codeine phosphate Allergy Stomach Verified 05/14/19 11:37 [From Tylenol-Codeine #3] Ache ketorolac tromethamine Allergy Stomach Verified 05/14/19 11:37 [From Toradol] Upset lisinopril Allergy Cough Verified 05/14/19 11:37 tramadol Allergy Vomiting Verified 05/14/19 11:37 Home Meds: Home Meds Gabapentin [Neurontin] 900 mg PO TID 03/10/16 [History] Losartan/Hydrochlorothiazide [Losartan-HCTZ 100-12.5 MG] 1 each PO DAILY [History] Cephalexin [Keflex] 1,000 mg PO TID 7 Days #42 capsule 03/23/19 [Rx] Mupirocin Oint [Bactroban Oint] 22 gm TP BID #1 tube 03/23/19 [Rx] Gabapentin [Neurontin] 900 mg PO TID 03/24/19 [History] Venlafaxine HCl [Venlafaxine ER] 75 mg PO DAILY 03/24/19 [History] busPIRone [Buspar] 10 mg PO TID 03/24/19 [History] Clindamycin HCl 450 mg PO TID 10 Days #90 capsule 05/14/19 [Rx] Acetaminophen/HYDROcodone [[place] 325-5 MG] 1 tab PO Q12HR PRN #2 tab 06/07/19 [ Rx] Amoxicillin/Potassium Clav [Augmentin 875-125 Tablet] 1 each PO BID #20 tablet 06/07/19 [Rx] Past Medical History - Past Health History Medical/Surgical History: Denies Medical/Surgical History Cardiovascular History: Reports: Hypertension Respiratory History: Reports: Asthma Gastrointestinal History: Reports: PUD Musculoskeletal History: Reports: Fracture Other Musculoskeletal History: fx R gt toe Neurological History: Reports: Concussion, Neuropathy, Peripheral, Other (See Below) Other Neuro History: 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 Psychiatric History: Reports: Anxiety, Depression, Panic Attack Endocrine/Metabolic History: Reports: Obesity/BMI 30+ - Infectious Disease History Infectious Disease History: Reports: Chicken Pox, MRSA - Past Surgical History HEENT Surgical History: Reports: Oral Surgery Musculoskeletal Surgical History: Reports: Other (See Below) Other Musculoskeletal Surgeries/Procedures:: r toe surgery Social & Family History - Family History Family Medical History: Noncontributory - Caffeine Use Caffeine Use: Reports: Soda - Living Situation & Occupation Living situation: Reports: Single ED ROS ENT - Review of Systems Review Of Systems: See Below Constitutional: Reports: No Symptoms HEENT: Reports: Dental Pain Respiratory: Reports: No Symptoms Cardiovascular: Reports: No Symptoms Endocrine: Reports: No Symptoms GI/Abdominal: Reports: No Symptoms : Reports: No Symptoms Musculoskeletal: Reports: No Symptoms Skin: Reports: No Symptoms Neurological: Reports: No Symptoms Psychiatric: Reports: No Symptoms Hematologic/Lymphatic: Reports: No Symptoms Immunologic: Reports: No Symptoms ED EXAM, ENT - Physical Exam Exam: See Below Exam Limited By: No Limitations General Appearance: Alert, WD/WN, Obese (morbid) Eye Exam: Bilateral Eye: Normal Inspection Ears: Normal External Exam, Normal Canal Nose: Normal Inspection, Normal Mucousa, No Blood Mouth/Throat: Normal Lips, Dental Pain, Dental Tenderness, Dental Trauma Head: Atraumatic, Normocephalic Neck: Normal Inspection, Supple, Non-Tender, Full Range of Motion Respiratory/Chest: No Respiratory Distress Cardiovascular: Normal Peripheral Pulses, Regular Rate, Rhythm GI/Abdominal: Normal Bowel Sounds (Male) Exam: Deferred Rectal (Males) Exam: Deferred Back: Normal Inspection, Full Range of Motion Extremities: Normal Inspection, Normal Range of Motion Neurological: Alert, Oriented, CN II-XII Intact, Normal Cognition, Normal Gait Psychiatric: Normal Affect, Normal Mood Skin: Warm, Dry, Intact, Normal Color, No Rash Lymphatic: No Adenopathy Course - Vital Signs Text/Narrative:: 33 y.o.w.f came to the ed with excruciating pain at his tooth #14/15 for 2 days an Tylenol, Motrin etc will not help. No dircttraum, could not see a dentis this week. No N/V/D or any other acute med issue. BP 148/81 RR 18 Pulse ox 97% on RA Temp 36.6 Pulse 81 PE: Morbid obese 33 y.o.w.m with tooth ache Impression: Toothache, gingivitis Tx: Augmentin, Percocet Reexam: improved Plan: D/C with instructions Last Recorded V/S: Last Vital Signs Temp 36.5 C 06/07/19 21:45 Pulse 72 06/07/19 21:45 Resp 18 06/07/19 21:45 BP 148/81 H 06/07/19 21:45 Pulse Ox 97 06/07/19 21:45 - Orders/Labs/Meds Meds: Medications Discontinued Medications Generic Name Dose Route Start Last Admin Trade Name Freq PRN Reason Stop Dose Admin Amoxicillin/Clavulanate Potassium 1 tab 06/07/19 21:59 06/07/19 22:16 Augmentin 875 Mg/125 Mg PO 06/07/19 22:00 1 tab ONETIME ONE Administration Oxycodone/Acetaminophen 1 tab 06/07/19 22:00 06/07/19 22:17 Percocet 325-5 Mg PO 06/07/19 22:01 1 tab ONETIME STA Administration Departure - Departure Time of Disposition: 22:04 Disposition: Home, Self-Care 01 Condition: Good Clinical Impression: Toothache, Gingivitis - Discharge Information Prescriptions: Acetaminophen/HYDROcodone [[place] 325-5 MG] 1 tab PO Q12HR PRN #2 tab PRN Reason: for excruiating pain only Amoxicillin/Potassium Clav [Augmentin 875-125 Tablet] 1 each PO BID #20 tablet Instructions: Gingivitis, [id number], Amoxicillin; Clavulanic Acid tablets, Acetaminophen; Oxycodone capsules Forms: ED Department Discharge Additional Instructions: Activity as tolerated. Augmentin 875mg 1 tablet twice a day until gone. Hydrocodone 5/325 1 tablet every 12 hours as needed for severe pain. Ibuprofen as needed for moderate pain. Follow up with dentist this week.
[2019-06-08 01:08] VITALS: BP 127/75; PULSE 76
== END 2019-06-07 22:26 | disposition home or self-care (01) ==
LOC: FB.ED 20:57
DX: K05.10 Chronic gingivitis, plaque induced (principal); E66.9 Obesity, unspecified; F41.9 Anxiety disorder, unspecified; F32.9 Major depressive disorder, single episode, unspecified; Z88.5 Allergy status to narcotic agent; Z88.8 Allergy status to other drugs, medicaments and biological substances; Z79.899 Other long term (current) drug therapy; Z98.890 Other specified postprocedural states
CPT/HCPCS: 99282; A9270

== ENCOUNTER 2019-07-16 08:45 | Emergency (ER) | payer MEDICAID ==
[2019-07-16] MEDS ORDERED: Bupivacaine 0.5%/EPINEPHrine 1:200,000 50 ML MDV NERVRT ONE (08:46)
--- NOTE | 2019-07-16 09:01 | EDM.PDOC ---
ED HPI GENERAL MEDICAL PROBLEM - General Chief Complaint: General Stated Complaint: JAW/GUMS HURT Time Seen by Provider: 07/16/19 08:48 Source of Information: Reports: Patient History Limitations: Reports: No Limitations - History of Present Illness INITIAL COMMENTS - FREE TEXT/NARRATIVE: 33-year-old male who has had intermittent left upper and left lower tooth pain for the past few months and this morning after taking a bite of a doughnut, he developed severe sharp pain in his left upper teeth that seemed to radiate all over the left side of his head and went into his left lower jaw. He reports the pain was a 10/10. It was a sharp and throbbing pain that seems to be worse when the air hit his teeth and with biting on those teeth. He had no chest pain associated with this. He was aching all over. Some nausea but no vomiting. No shortness of breath. The pain has been present to a low degree for the past week but became severe and intense at 7:30 AM this morning. There are no other associated signs or symptoms. There are no other modifying factors. Onset: Other (Ongoing pain for the past 2-3 months or more. Severe pain beginning at 7:30 AM.) Duration: Getting Worse Location: Reports: Face (Left upper and lower teeth and jaw.) Quality: Reports: Ache, Sharp, Throbbing Severity: Severe Improves with: Reports: None Worsens with: Reports: Other (Chewing. Air hitting his teeth.) Context: Reports: Other (As above) Associated Symptoms: Reports: Nausea/Vomiting Treatments SIX PACK PACKER: Reports: Acetaminophen, Home Treatments (Global and Anbesol), NSAIDS, Other Medication(s) (Took one dose of amoxicillin) left jaw/tooth Pain Score (Numeric/FACES): 3 - Related Data Allergies Allergy/AdvReac Type Severity Reaction Status Date / Time codeine phosphate Allergy Stomach Verified 07/16/19 08:53 [From Tylenol-Codeine #3] Ache ketorolac tromethamine Allergy Stomach Verified 07/16/19 08:53 [From Toradol] Upset lisinopril Allergy Cough Verified 07/16/19 08:53 tramadol Allergy Vomiting Verified 07/16/19 08:53 Home Meds: Home Meds Losartan/Hydrochlorothiazide [Losartan-HCTZ 100-12.5 MG] 1 each PO DAILY [History] Gabapentin [Neurontin] 900 mg PO TID 03/24/19 [History] Clindamycin HCl 450 mg PO TID #90 capsule 07/16/19 [Rx] PARoxetine [Paxil] 20 mg PO DAILY 07/16/19 [History] hydrOXYzine HCl [hydrOXYzine] 25 mg PO TID 07/16/19 [History] Past Medical History Cardiovascular History: Reports: Hypertension Respiratory History: Reports: Asthma Gastrointestinal History: Reports: PUD Musculoskeletal History: Reports: Fracture Other Musculoskeletal History: fx R gt toe Neurological History: Reports: Concussion, Neuropathy, Peripheral, Other (See Below) Other Neuro History: 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 Psychiatric History: Reports: Anxiety, Depression, Panic Attack Endocrine/Metabolic History: Reports: Obesity/BMI 30+ - Infectious Disease History Infectious Disease History: Reports: Chicken Pox, MRSA - Past Surgical History HEENT Surgical History: Reports: Oral Surgery Musculoskeletal Surgical History: Reports: Other (See Below) Other Musculoskeletal Surgeries/Procedures:: r toe surgery Social & Family History - Tobacco Use Smoking Status *Q: Current Every Day Smoker - Caffeine Use Caffeine Use: Reports: Soda - Living Situation & Occupation Living situation: Reports: Single Social History Comment: He is here by himself. ED ROS GENERAL - Review of Systems Review Of Systems: See Below Constitutional: Reports: No Symptoms HEENT: Reports: Dental Pain, Other (Jaw pain, left upper and left lower) Respiratory: Reports: No Symptoms Cardiovascular: Reports: No Symptoms Endocrine: Reports: No Symptoms GI/Abdominal: Reports: Nausea, Vomiting (Dry heaving earlier) : Reports: No Symptoms Musculoskeletal: Reports: No Symptoms Skin: Reports: No Symptoms Neurological: Reports: Headache (Left-sided) Hematologic/Lymphatic: Reports: No Symptoms Immunologic: Reports: No Symptoms ED EXAM, GENERAL - Physical Exam Exam: See Below Exam Limited By: No Limitations General Appearance: Alert, Moderate Distress (Moderate to severe. Appears in severe pain), Obese Eye Exam: Bilateral Eye: EOMI, Normal Inspection, PERRL Ears: Normal External Exam, Hearing Grossly Normal Ear Exam: Bilateral Ear: Auricle Normal Nose: Normal Inspection, Normal Mucosa, No Blood Throat/Mouth: Normal Voice, No Airway Compromise, Other (Poor dentition; no pointing abscess. Tenderness along his upper and lower gumlines. Mild erythema along these areas.) Head: Atraumatic, Normocephalic Neck: Normal Inspection, Supple, Non-Tender, Full Range of Motion Respiratory/Chest: No Respiratory Distress, Lungs Clear, Normal Breath Sounds, No Accessory Muscle Use, Chest Non-Tender Cardiovascular: Normal Peripheral Pulses, Regular Rate, Rhythm, No Murmur Peripheral Pulses: 2+: Radial (L), Radial (R) GI/Abdominal: Normal Bowel Sounds, Soft, Non-Tender, No Mass Back Exam: Normal Inspection Extremities: Normal Inspection, Normal Range of Motion, Non-Tender, No Pedal Edema, Normal Capillary Refill Neurological: Alert, Oriented, CN II-XII Intact, Normal Cognition, No Motor/ Sensory Deficits Skin Exam: Warm, Dry, Intact, Normal Color, No Rash ED GENERAL MEDICAL PROCEDURES - Additional/Other Procedure(s) Other (Free Text) Procedure(s): After informed verbal consent was obtained from the patient, I performed a left upper dental block using 0.5% Marcaine with epinephrine 2 mL's. Following this , I applied a left inferior alveolar nerve block using 0.5% Marcaine with epinephrine 3 mls. There was good anesthesia and almost immediate relief of the patient's pain after both nerve blocks were performed. The patient tolerated this well without any apparent complications. EKG INTERPRETATION EKG Date: 07/16/19 Time: 08:46 Rhythm: NSR Rate (Beats/Min): 87 [place]: Normal (Computer noted axis to be 237 but the axis appears to be 40 to me and normal.) P-Wave: Present QRS: Normal ST-T: Other (Early repolarization pattern is present.) QT: Normal Comparison: No Change (Compared to the EKG performed on 01/30/2019, there does not appear to be any significant change.) Course - Vital Signs Last Recorded V/S: Last Vital Signs Temp 36.2 C 07/16/19 09:15 Pulse 86 07/16/19 09:15 Resp 15 07/16/19 09:15 BP 156/82 H 07/16/19 09:15 Pulse Ox 95 07/16/19 09:15 - Orders/Labs/Meds Orders: Active Orders 24 hr Category Date Time Status EKG Documentation Completion [RC] ASDIRECTED Care 07/16/19 09:00 Active EKG 12 Lead [EK] Routine Ther 07/16/19 09:00 Ordered Labs: Laboratory Tests 07/16/19 Range/Units 09:25 Troponin I < 0.017 L (<0.017-0.056) ng/mL - Re-Assessments/Exams Free Text/Narrative Re-Assessment/Exam: 07/16/19 09:49: Patient's EKG was normal. A troponin level was normal as well. The patient feels much improved after the dental blocks were performed. His pain is down to a 2-3/10. He appears to have dental pain related to cares dentition and a dental infection. I am placing the patient on clindamycin 450 mg 3 times a day and he is to follow-up with the dentist as soon as he can arrange. He was given "numb mouth precautions". Departure - Departure Time of Disposition: :55 Disposition: Home, Self-Care 01 Condition: Good (Improved) Clinical Impression: Pain, dental, Dental caries, Dental abscess - Discharge Information Prescriptions: Clindamycin HCl 450 mg PO TID #90 capsule Instructions: Dental Abscess, [id number] Referrals: PCP,None [Primary Care Provider] - Forms: ED Department Discharge Additional Instructions: Your EKG showed no evidence of a heart attack. Your heart enzyme test was normal. You appear to have a dental abscess and poor dentition causing your dental and jaw pain. You should see a dentist as soon as you can arrange. Medication as prescribed (clindamycin 150 mg). You should take probiotics or eat yogurt daily while you are on the antibiotics. You will to take the antibiotics for the full 10 days. You have been given injections of "numbing medications" in your mouth. This will cause your mouth to be numb for a variable period of time. You should avoid any hot foods or liquids while your mouth is numb. You should also be careful chewing and talking while your mouth is numb as she could injure yourself easily. Back to the emergency department for chest pain, shortness of breath, trouble swallowing, trouble breathing or any other concerning sign or symptom. - My Orders Last 24 Hours: My Active Orders 07/16/19 09:00 EKG Documentation Completion [RC] ASDIRECTED EKG 12 Lead [EK] Routine - Assessment/Plan Last 24 Hours: My Active Orders 07/16/19 09:00 EKG Documentation Completion [RC] ASDIRECTED EKG 12 Lead [EK] Routine
[2019-07-16 10:06] VITALS: BP 153/94
== END 2019-07-16 10:02 | disposition home or self-care (01) ==
LOC: FB.ED 08:45
DX: K04.7 Periapical abscess without sinus (principal); K02.9 Dental caries, unspecified; F41.0 Panic disorder [episodic paroxysmal anxiety]; I10 Essential (primary) hypertension; F32.9 Major depressive disorder, single episode, unspecified; E66.9 Obesity, unspecified; F17.210 Nicotine dependence, cigarettes, uncomplicated; Z88.6 Allergy status to analgesic agent; Z79.899 Other long term (current) drug therapy; Z88.8 Allergy status to other drugs, medicaments and biological substances; Z68.42 Body mass index [BMI] 45.0-49.9, adult
CPT/HCPCS: 36415; 84484; 93005; 99283; J3490

== ENCOUNTER 2019-08-01 10:17 | Emergency (ER) | payer MEDICAID ==
--- NOTE | 2019-08-01 10:31 | EDM.PDOC ---
ED HPI GENERAL MEDICAL PROBLEM - General Stated Complaint: TOOTH PAIN Time Seen by Provider: 08/01/19 10:27 Source of Information: Reports: Patient, Family History Limitations: Reports: No Limitations - History of Present Illness INITIAL COMMENTS - FREE TEXT/NARRATIVE: 33 y.o. NA came to the ed 1 week after his 11th tooth was extracted. He was seen in this ED. He was seen in this ED 1 week a go and given Abx for gingivitis. He took all the meds and still has gum pain. Pt denies new trauma. Pt does not smoke or drink ETOH. No CP, no SOB no other acute med issues. BP 147 /97 RR 18 Pulse ox 97% on RA Temp 36.8 Onset Date: 07/24/19 Onset Time: 09:00 Duration: Week(s):, Getting Worse, Intermittent Location: Reports: Face Quality: Reports: Ache, Burning, Same as Previous Episode Severity: Moderate Improves with: Reports: Medication Worsens with: Reports: Movement Context: Reports: Trauma (toothextraction #11 last week) Associated Symptoms: Reports: No Other Symptoms Left Tooth/Teeth Pain Score (Numeric/FACES): 8 - Related Data Allergies Allergy/AdvReac Type Severity Reaction Status Date / Time codeine phosphate Allergy Stomach Verified 08/01/19 10:42 [From Tylenol-Codeine #3] Ache ketorolac tromethamine Allergy Stomach Verified 08/01/19 10:42 [From Toradol] Upset lisinopril Allergy Cough Verified 08/01/19 10:42 tramadol Allergy Vomiting Verified 08/01/19 10:42 Home Meds: Home Meds Losartan/Hydrochlorothiazide [Losartan-HCTZ 100-12.5 MG] 1 each PO DAILY [History] Gabapentin [Neurontin] 900 mg PO TID 03/24/19 [History] Clindamycin HCl 450 mg PO TID #90 capsule 07/16/19 [Rx] PARoxetine [Paxil] 20 mg PO DAILY 07/16/19 [History] hydrOXYzine HCl [hydrOXYzine] 25 mg PO TID 07/16/19 [History] Acetaminophen/HYDROcodone [[place] 325-5 MG] 1 tab PO Q4H PRN #4 tab 08/01/19 [Rx] Amoxicillin/Potassium Clav [Augmentin 875-125 Tablet] 1 each PO BID #20 tablet 08/01/19 [Rx] Past Medical History - Past Health History Medical/Surgical History: Denies Medical/Surgical History Cardiovascular History: Reports: Hypertension Respiratory History: Reports: Asthma Gastrointestinal History: Reports: PUD Musculoskeletal History: Reports: Fracture Other Musculoskeletal History: fx R gt toe Neurological History: Reports: Concussion, Neuropathy, Peripheral, Other (See Below) Other Neuro History: 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 Psychiatric History: Reports: Anxiety, Depression, Panic Attack Endocrine/Metabolic History: Reports: Obesity/BMI 30+ - Infectious Disease History Infectious Disease History: Reports: Chicken Pox, MRSA - Past Surgical History HEENT Surgical History: Reports: Oral Surgery Musculoskeletal Surgical History: Reports: Other (See Below) Other Musculoskeletal Surgeries/Procedures:: r toe surgery Social & Family History - Family History Family Medical History: Noncontributory - Caffeine Use Caffeine Use: Reports: Soda - Living Situation & Occupation Living situation: Reports: Single ED ROS ENT - Review of Systems Review Of Systems: See Below Constitutional: Reports: No Symptoms HEENT: Reports: Dental Pain Respiratory: Reports: No Symptoms Cardiovascular: Reports: No Symptoms Endocrine: Reports: No Symptoms GI/Abdominal: Reports: No Symptoms : Reports: No Symptoms Musculoskeletal: Reports: No Symptoms Skin: Reports: No Symptoms Neurological: Reports: No Symptoms Psychiatric: Reports: No Symptoms Hematologic/Lymphatic: Reports: No Symptoms Immunologic: Reports: No Symptoms ED EXAM, ENT - Physical Exam Exam: See Below Exam Limited By: No Limitations General Appearance: Alert, WD/WN, Mild Distress Eye Exam: Bilateral Eye: Normal Inspection Ears: Normal External Exam, Normal Canal Nose: Normal Inspection, Normal Mucousa, No Blood Mouth/Throat: Normal Lips, Normal Oropharynx, Dental Pain, Dental Tenderness Head: Atraumatic, Normocephalic Neck: Normal Inspection, Supple, Non-Tender, Full Range of Motion Respiratory/Chest: No Respiratory Distress, Lungs Clear, Normal Breath Sounds, Chest Non-Tender Cardiovascular: Normal Peripheral Pulses, Regular Rate, Rhythm, No Edema, No Gallop GI/Abdominal: Normal Bowel Sounds, Soft, Non-Tender, No Organomegaly, Pelvis Stable (Male) Exam: Deferred Rectal (Males) Exam: Deferred Back: Normal Inspection, Full Range of Motion Extremities: Normal Inspection, Normal Range of Motion Neurological: Alert, Oriented, CN II-XII Intact, Normal Cognition, Normal Gait Psychiatric: Normal Affect, Normal Mood Skin: Warm, Dry, Intact, Normal Color, No Rash Lymphatic: No Adenopathy Course - Vital Signs Text/Narrative:: 33 y.o. NA came to the ed 1 week after his 11th tooth was extracted. He was seen in this ED. He was seen in this ED 1 week a go and given Abx for gingivitis. He took all the meds and still has gum pain. Pt denies new trauma. Pt does not smoke or drink ETOH. No CP, no SOB no other acute med issues. BP 147 /97 RR 18 Pulse ox 97% on RA Temp 36.8 PE: Morbid obese 33 y.o. NA with toothache Impression: Gingivitis S/P Tooth extraction Tx: Prescription for Augmentin and [place] Reexam: Stable in the ED Plan: D/C with instructions Last Recorded V/S: Last Vital Signs Temp 36.8 C 08/01/19 10:17 Pulse 72 08/01/19 10:17 Resp 18 08/01/19 10:17 BP 147/97 H 08/01/19 10:17 Pulse Ox 97 08/01/19 10:17 Departure - Departure Time of Disposition: 10:32 Disposition: Home, Self-Care 01 Condition: Good (gingivitis) Clinical Impression: Toothache - Discharge Information Prescriptions: Acetaminophen/HYDROcodone [[place] 325-5 MG] 1 tab PO Q4H PRN #4 tab PRN Reason: for severe pain only Amoxicillin/Potassium Clav [Augmentin 875-125 Tablet] 1 each PO BID #20 tablet Instructions: Tooth Pulling, Care After, Dental Dry Socket Referrals: PCP,Unknown [Primary Care Provider] - Forms: ED Department Discharge Additional Instructions: Please take Augmentin as recommended, please take Tylenol for pain please f/u with your Dentist, come back if your symptoms get worse acutely
[2019-08-01 11:29] VITALS: BP 147/97; PULSE 72
== END 2019-08-01 10:50 | disposition home or self-care (01) ==
LOC: FB.ED 10:17
DX: K08.89 Other specified disorders of teeth and supporting structures (principal); F32.9 Major depressive disorder, single episode, unspecified; F41.0 Panic disorder [episodic paroxysmal anxiety]; Z88.8 Allergy status to other drugs, medicaments and biological substances; Z79.899 Other long term (current) drug therapy; Z88.5 Allergy status to narcotic agent
CPT/HCPCS: 99282

== ENCOUNTER 2019-09-12 11:15 | Emergency (ER) | payer MEDICAID ==
[2019-09-12] MEDS: Ibuprofen 600 MG Tab PO ONE (12:26)
--- NOTE | 2019-09-12 12:48 | EDM.PDOC ---
ED HPI GENERAL MEDICAL PROBLEM - General Chief Complaint: Lower Extremity Injury/Pain Time Seen by Provider: 09/12/19 12:43 Source of Information: Reports: Patient History Limitations: Reports: No Limitations - History of Present Illness INITIAL COMMENTS - FREE TEXT/NARRATIVE: Patient fell while carrying 5 gallon jug of water yesterday @1700, twisted right knee, felt a pop, complains of right medial knee pain. Patient is unable to bear weight. Onset Date: 09/11/19 Onset Time: 17:00 Location: Reports: Lower Extremity, Right Quality: Reports: Ache Severity: Moderate Associated Symptoms: Reports: No Other Symptoms Treatments BUILDING ILLUMINATING ENGINEER: Reports: Acetaminophen, Other (see below) Other Treatments BUILDING ILLUMINATING ENGINEER: Tylenol Right knee Pain Score (Numeric/FACES): 9 - Related Data Allergies Allergy/AdvReac Type Severity Reaction Status Date / Time codeine phosphate Allergy Stomach Verified 09/12/19 12:23 [From Tylenol-Codeine #3] Ache ketorolac tromethamine Allergy Stomach Verified 09/12/19 12:23 [From Toradol] Upset lisinopril Allergy Cough Verified 09/12/19 12:23 tramadol Allergy Vomiting Verified 09/12/19 12:23 Home Meds: Home Meds Losartan/Hydrochlorothiazide [Losartan-HCTZ 100-12.5 MG] 1 each PO DAILY [History] Gabapentin [Neurontin] 900 mg PO TID 03/24/19 [History] Acetaminophen/HYDROcodone [[place] 325-5 MG] 1 - 2 tab PO Q6H PRN #16 tab [Rx] Past Medical History Cardiovascular History: Reports: Hypertension Respiratory History: Reports: Asthma Gastrointestinal History: Reports: PUD Musculoskeletal History: Reports: Fracture Other Musculoskeletal History: fx R gt toe Neurological History: Reports: Concussion, Neuropathy, Peripheral, Other (See Below) Other Neuro History: 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 Psychiatric History: Reports: Anxiety, Depression, Panic Attack Endocrine/Metabolic History: Reports: Obesity/BMI 30+ - Infectious Disease History Infectious Disease History: Reports: Chicken Pox, MRSA - Past Surgical History HEENT Surgical History: Reports: Oral Surgery Musculoskeletal Surgical History: Reports: Other (See Below) Other Musculoskeletal Surgeries/Procedures:: r toe surgery Social & Family History - Family History Family Medical History: Noncontributory - Tobacco Use Smoking Status *Q: Current Every Day Smoker Years of Tobacco use: 20 Packs/Tins Daily: 0.3 - Caffeine Use Caffeine Use: Reports: Energy Drinks, Soda - Recreational Drug Use Recreational Drug Use: No - Living Situation & Occupation Living situation: Reports: Single Review of Systems - Review of Systems Review Of Systems: ROS reveals no pertinent complaints other than HPI. ED EXAM, GENERAL - Physical Exam Exam: See Below Exam Limited By: No Limitations General Appearance: Alert, WD/WN, No Apparent Distress Nose: Normal Inspection Head: Atraumatic, Normocephalic Neck: Full Range of Motion Respiratory/Chest: No Respiratory Distress Peripheral Pulses: 2+: Dorsalis Pedis (R) Extremities: Other (Tenderness right medial knee, there is laxity of the medial collateral ligament) Psychiatric: Normal Affect, Normal Mood Skin Exam: Warm, Dry Course - Vital Signs Last Recorded V/S: Last Vital Signs Temp 36.4 C 09/12/19 11:20 Pulse 88 09/12/19 11:20 Resp 18 09/12/19 11:20 BP 146/99 H 09/12/19 11:20 Pulse Ox 98 09/12/19 11:20 - Orders/Labs/Meds Orders: Active Orders 24 hr Category Date Time Status Knee 1V or 2V Rt [CR] Stat Exams 09/12/19 11:20 Taken Meds: Medications Discontinued Medications Generic Name Dose Route Start Last Admin Trade Name Freq PRN Reason Stop Dose Admin Ibuprofen 600 mg 09/12/19 12:23 09/12/19 12:26 Motrin PO 09/12/19 12:24 600 mg ONETIME ONE Administration - Radiology Interpretation Free Text/Narrative:: Right Knee XR: Modest suprapatellar effusion. Moderate tricompartmental degenerative changes. No evidence for acute fracture. - Re-Assessments/Exams Free Text/Narrative Re-Assessment/Exam: 09/12/19 12:47 Placed in a knee immobilizer and given crutches. Departure - Departure Time of Disposition: 12:49 Disposition: Home, Self-Care 01 Condition: Good Clinical Impression: Rupture of ligament of knee joint Qualifiers: Encounter type: initial encounter Laterality: right Qualified Code(s): S83.91XA - Sprain of unspecified site of right knee, initial encounter - Discharge Information *PRESCRIPTION DRUG MONITORING PROGRAM REVIEWED*: Yes *COPY OF PRESCRIPTION DRUG MONITORING REPORT IN PATIENT VALERIE: No Prescriptions: Acetaminophen/HYDROcodone [[place] 325-5 MG] 1 - 2 tab PO Q6H PRN #16 tab PRN Reason: Pain Instructions: Crutch Use, Adult, [id number], Knee Sprain, Adult, [id number] , How to Use a Knee Immobilizer, [id number] Referrals: Yanira Lockwood MD [Primary Care Provider] - Zafar Duffy DO [Physician] - 2 Days Additional Instructions: Fill the prescription for [place] and take as directed. You may also take Ibuprofen as needed, but do not take Acetaminophen containing medications while taking the [place]. Follow up with Orthopedics in 2-3 days. - My Orders Last 24 Hours: My Active Orders 09/12/19 11:20 Knee 1V or 2V Rt [CR] Stat - Assessment/Plan Last 24 Hours: My Active Orders 09/12/19 11:20 Knee 1V or 2V Rt [CR] Stat
[2019-09-12 13:04] VITALS: BP 145/92; PULSE 82
== END 2019-09-12 13:00 | disposition home or self-care (01) ==
LOC: FB.ED 11:15
DX: S83.91XA Sprain of unspecified site of right knee, initial encounter (principal); J45.909 Unspecified asthma, uncomplicated; G62.9 Polyneuropathy, unspecified; I10 Essential (primary) hypertension; F17.210 Nicotine dependence, cigarettes, uncomplicated; E66.9 Obesity, unspecified; Z88.5 Allergy status to narcotic agent; Z88.6 Allergy status to analgesic agent; Z88.8 Allergy status to other drugs, medicaments and biological substances; Z79.899 Other long term (current) drug therapy; Z68.42 Body mass index [BMI] 45.0-49.9, adult; W18.30XA Fall on same level, unspecified, initial encounter; X50.1XXA Overexertion from prolonged static or awkward postures, initial encounter; Y93.89 Activity, other specified
CPT/HCPCS: 73560; 99283; A9270

== ENCOUNTER 2019-10-17 22:09 | Emergency (ER) | payer MEDICAID ==
[2019-10-17] MEDS ORDERED: Lidocaine 2% Viscous Solution 15 ML Cup PO ONE (23:01)
[2019-10-17] MEDS ORDERED: Amoxicillin 500 MG Cap PO ONE (23:09)
--- NOTE | 2019-10-17 23:16 | EDM.PDOC ---
ED HPI GENERAL MEDICAL PROBLEM - General Chief Complaint: General Stated Complaint: BROKEN TOOTH Time Seen by Provider: 10/17/19 22:20 Source of Information: Reports: Patient History Limitations: Reports: No Limitations - History of Present Illness INITIAL COMMENTS - FREE TEXT/NARRATIVE: Patient presented to the Ed because of dental pain and a fractured tooth. He is taking OTC pain medication without any rel.ief. he rates the pain 08/20. - Related Data Allergies Allergy/AdvReac Type Severity Reaction Status Date / Time codeine phosphate Allergy Stomach Verified 10/17/19 23:48 [From Tylenol-Codeine #3] Ache ketorolac tromethamine Allergy Stomach Verified 10/17/19 23:48 [From Toradol] Upset lisinopril Allergy Cough Verified 10/17/19 23:48 tramadol Allergy Vomiting Verified 10/17/19 23:48 Home Meds: Home Meds Losartan/Hydrochlorothiazide [Losartan-HCTZ 100-12.5 MG] 1 each PO DAILY [History] Gabapentin [Neurontin] 900 mg PO TID 03/24/19 [History] Amitriptyline [Elavil] 50 mg PO BEDTIME 10/17/19 [History] Amoxicillin [Amoxil] 875 mg PO Q12HR #20 tab 10/17/19 [Rx] Lidocaine 2% [Xylocaine 2% Jelly] 1 ml BUCCAL Q1H PRN #1 tube 10/17/19 [Rx] Metoprolol Succinate 25 mg PO DAILY 10/17/19 [History] Sulfamethoxazole/Trimethoprim [Septra DS] 1 tab PO DAILY 10/17/19 [History] Past Medical History - Past Health History Medical/Surgical History: Denies Medical/Surgical History Cardiovascular History: Reports: Hypertension Respiratory History: Reports: Asthma Gastrointestinal History: Reports: PUD Musculoskeletal History: Reports: Fracture Other Musculoskeletal History: fx R gt toe Neurological History: Reports: Concussion, Neuropathy, Peripheral, Other (See Below) Other Neuro History: 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 Psychiatric History: Reports: Anxiety, Depression, Panic Attack Endocrine/Metabolic History: Reports: Obesity/BMI 30+ - Infectious Disease History Infectious Disease History: Reports: Chicken Pox, MRSA - Past Surgical History HEENT Surgical History: Reports: Oral Surgery Musculoskeletal Surgical History: Reports: Other (See Below) Other Musculoskeletal Surgeries/Procedures:: r toe surgery Social & Family History - Family History Family Medical History: Noncontributory - Caffeine Use Caffeine Use: Reports: Energy Drinks, Soda - Living Situation & Occupation Living situation: Reports: Single ED ROS GENERAL - Review of Systems Review Of Systems: See Below Constitutional: Reports: No Symptoms HEENT: Reports: Dental Pain Respiratory: Reports: No Symptoms, Shortness of Breath Cardiovascular: Reports: No Symptoms Endocrine: Reports: No Symptoms GI/Abdominal: Reports: No Symptoms : Reports: No Symptoms Musculoskeletal: Reports: No Symptoms Skin: Reports: No Symptoms Neurological: Reports: No Symptoms Psychiatric: Reports: No Symptoms Hematologic/Lymphatic: Reports: No Symptoms ED EXAM, GENERAL - Physical Exam Exam: See Below Exam Limited By: No Limitations General Appearance: Alert, WD/WN, No Apparent Distress Nose: Normal Inspection, Normal Mucosa, No Blood Throat/Mouth: Normal Inspection, Normal Lips, Other (dental caries and gingival swelling) Head: Atraumatic, Normocephalic Neck: Normal Inspection, Supple, Non-Tender, Full Range of Motion Respiratory/Chest: No Respiratory Distress, Lungs Clear, Normal Breath Sounds, No Accessory Muscle Use, Chest Non-Tender Cardiovascular: Normal Peripheral Pulses, Regular Rate, Rhythm, No Edema, No Gallop, No JVD, No Murmur Back Exam: Normal Inspection, Full Range of Motion Extremities: Normal Inspection, Normal Range of Motion, Non-Tender Neurological: Alert, Oriented, CN II-XII Intact, Normal Cognition, Normal Gait, No Motor/Sensory Deficits Skin Exam: Warm Course - Vital Signs Text/Narrative:: viscous lidocaine norco 5/325, 2 po x1 amoxicillin 1000 mg po x1 - Orders/Labs/Meds Meds: Medications Discontinued Medications Generic Name Dose Route Start Last Admin Trade Name Dragan PRN Reason Stop Dose Admin Hydrocodone Bitart/Acetaminophen 2 tab 10/17/19 23:31 10/17/19 23:35 [place] 325-5 Mg PO 10/17/19 23:32 2 tab ONETIME ONE Administration Amoxicillin 1,000 mg 10/17/19 23:09 10/17/19 23:35 Amoxil PO 10/17/19 23:10 1,000 mg ONETIME ONE Administration Lidocaine HCl 15 ml 10/17/19 23:01 10/17/19 23:05 Xylocaine 2% Viscous PO 10/17/19 23:02 15 ml ONETIME ONE Administration Departure - Departure Time of Disposition: 22:15 Disposition: Home, Self-Care 01 Condition: Good Clinical Impression: Pain, dental, Gingivitis - Discharge Information Prescriptions: Amoxicillin [Amoxil] 875 mg PO Q12HR #20 tab Lidocaine 2% [Xylocaine 2% Jelly] 1 ml BUCCAL Q1H PRN #1 tube PRN Reason: Pain Instructions: Dental Abscess, [id number] Referrals: Yanira Lockwood MD [Primary Care Provider] - Forms: ED Department Discharge Additional Instructions: Please read discharge instructions on dental pain and infection gurgle with salt and water take ibuprofen 800 mg with tylenol 1000 mg every 8 hours as needed for pain apply viscous lidocaine every hour as needed for pain that you can't tolerate follow up with your dentist this week
[2019-10-17] MEDS ORDERED: Acetaminophen/HYDROcodone 325-5 MG Tab PO ONE (23:31)
[2019-10-18 00:07] VITALS: BP 149/91; PULSE 104
== END 2019-10-17 23:50 | disposition home or self-care (01) ==
LOC: FB.ED 22:09
DX: K05.10 Chronic gingivitis, plaque induced (principal); I10 Essential (primary) hypertension; J45.909 Unspecified asthma, uncomplicated; F41.0 Panic disorder [episodic paroxysmal anxiety]; F32.9 Major depressive disorder, single episode, unspecified; E66.9 Obesity, unspecified; Z68.42 Body mass index [BMI] 45.0-49.9, adult; Z88.5 Allergy status to narcotic agent; Z88.8 Allergy status to other drugs, medicaments and biological substances; Z79.899 Other long term (current) drug therapy
CPT/HCPCS: 99283; A9270

== ENCOUNTER 2019-10-30 05:49 | Emergency (ER) | payer MEDICAID ==
--- NOTE | 2019-10-30 06:58 | EDM.PDOC ---
ED HPI GENERAL MEDICAL PROBLEM - General Chief Complaint: General Stated Complaint: TOOTHACHE Time Seen by Provider: 10/30/19 06:55 Source of Information: Reports: Patient History Limitations: Reports: No Limitations - History of Present Illness INITIAL COMMENTS - FREE TEXT/NARRATIVE: 33-year-old male with history of multiple dental caries and dental abscess who reports his left upper most posterior molar cracked and has been crumbling for about the past 3-4 weeks. He has had intermittent pain in the area and day the pain was worse and he had throbbing and aching around the tooth and in the left face. He reports that he was up most of the night secondary to the pain. He had some leftover clindamycin at home that he has been taking for the past 24 hours without relief. He does feel that he has had a fever. There has been no nausea or vomiting. The pain is a throbbing and aching pain that he rates as an 8-9/ 10. It is worse with chewing. He is swallowing okay. He is breathing okay. There are no other associated signs or symptoms. There are no other modifying factors. Onset: Other (Ongoing for the past 3-4 weeks but worse over the past 24 hours.) Duration: Getting Worse Location: Reports: Face (Left upper dental pain and left facial pain and headache) Quality: Reports: Ache, Sharp, Throbbing Severity: Moderate (to severe) Improves with: Reports: None Worsens with: Reports: Eating, Other (Palpation over the area) Context: Reports: Other (As above) Associated Symptoms: Reports: Fever/Chills Treatments RN INTEGRITY: Reports: Acetaminophen, NSAIDS L upper jaw Pain Score (Numeric/FACES): 8 - Related Data Allergies Allergy/AdvReac Type Severity Reaction Status Date / Time codeine phosphate Allergy Stomach Verified 10/30/19 06:48 [From Tylenol-Codeine #3] Ache ketorolac tromethamine Allergy Stomach Verified 10/30/19 06:48 [From Toradol] Upset lisinopril Allergy Cough Verified 10/30/19 06:48 tramadol Allergy Vomiting Verified 10/30/19 06:48 Home Meds: Home Meds Losartan/Hydrochlorothiazide [Losartan-HCTZ 100-12.5 MG] 1 each PO DAILY [History] Gabapentin [Neurontin] 900 mg PO TID 03/24/19 [History] Amitriptyline [Elavil] 50 mg PO BEDTIME 10/17/19 [History] Metoprolol Succinate 50 mg PO DAILY 10/17/19 [History] Amoxicillin/Potassium Clav [Augmentin Xr 1,000-62.5 Tab] 1 each PO BID 10 Days # 20 tab.er.12h 10/30/19 [Rx] Hydrocodone/Acetaminophen [[place] 5-325 Tablet] 1 - 2 tab PO Q6H PRN #8 tablet [Rx] Past Medical History Cardiovascular History: Reports: Hypertension Respiratory History: Reports: Asthma Gastrointestinal History: Reports: PUD Musculoskeletal History: Reports: Fracture Other Musculoskeletal History: fx R gt toe Neurological History: Reports: Concussion, Neuropathy, Peripheral, Other (See Below) Other Neuro History: 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 Psychiatric History: Reports: Anxiety, Depression, Panic Attack Endocrine/Metabolic History: Reports: Obesity/BMI 30+ - Infectious Disease History Infectious Disease History: Reports: Chicken Pox, MRSA - Past Surgical History HEENT Surgical History: Reports: Oral Surgery Musculoskeletal Surgical History: Reports: Other (See Below) Other Musculoskeletal Surgeries/Procedures:: r toe surgery Social & Family History - Tobacco Use Smoking Status *Q: Current Every Day Smoker Years of Tobacco use: 12 Packs/Tins Daily: 0.2 - Caffeine Use Caffeine Use: Reports: Coffee, Soda, Tea - Recreational Drug Use Recreational Drug Use: No - Living Situation & Occupation Living situation: Reports: with Significant Other ED ROS GENERAL - Review of Systems Review Of Systems: See Below Constitutional: Reports: Fever (Subjective) HEENT: Reports: Dental Pain, Other (Left facial and jaw pain) Respiratory: Reports: No Symptoms Cardiovascular: Reports: No Symptoms Endocrine: Reports: No Symptoms GI/Abdominal: Reports: No Symptoms : Reports: No Symptoms Musculoskeletal: Reports: No Symptoms Skin: Reports: No Symptoms Neurological: Reports: Headache Hematologic/Lymphatic: Reports: No Symptoms Immunologic: Reports: No Symptoms ED EXAM, GENERAL - Physical Exam Exam: See Below Exam Limited By: No Limitations General Appearance: Alert, Moderate Distress, Obese Eye Exam: Bilateral Eye: EOMI, Normal Inspection, PERRL Ears: Normal External Exam, Hearing Grossly Normal Ear Exam: Bilateral Ear: Auricle Normal Nose: Normal Inspection, Normal Mucosa, No Blood Throat/Mouth: Normal Voice, No Airway Compromise, Other (Multiple carious dentition. Some gingival erythema around the left upper most posterior molar with tooth deterioration.) Head: Atraumatic, Normocephalic Neck: Normal Inspection, Supple, Non-Tender, Full Range of Motion Respiratory/Chest: No Respiratory Distress, Lungs Clear, Normal Breath Sounds, No Accessory Muscle Use, Chest Non-Tender Cardiovascular: Normal Peripheral Pulses, Regular Rate, Rhythm, No JVD Peripheral Pulses: 2+: Radial (L), Radial (R) GI/Abdominal: Normal Bowel Sounds, Soft, Non-Tender, No Mass Back Exam: Normal Inspection Extremities: Normal Inspection, Normal Range of Motion, Non-Tender, No Pedal Edema, Normal Capillary Refill Neurological: Alert, Oriented, CN II-XII Intact, Normal Cognition, No Motor/ Sensory Deficits Skin Exam: Warm, Dry, Intact, Normal Color, No Rash Course - Vital Signs Last Recorded V/S: Last Vital Signs Temp 36.4 C 10/30/19 06:44 Pulse 84 10/30/19 06:44 Resp 18 10/30/19 06:44 BP 171/120 H 10/30/19 06:44 Pulse Ox 100 10/30/19 06:44 - Orders/Labs/Meds Meds: Medications Discontinued Medications Generic Name Dose Route Start Last Admin Trade Name Dragan PRN Reason Stop Dose Admin Hydrocodone Bitart/Acetaminophen 2 tab 10/30/19 07:54 [place] 325-5 Mg PO 10/30/19 07:55 ONETIME ONE - Re-Assessments/Exams Free Text/Narrative Re-Assessment/Exam: 10/30/19 07:33: Patient with multiple carious teeth with cracked left upper most posterior molar and presumed dental abscess associated with this. I we'll place patient on Augmentin and I will give him a small number of hydrocodone for his pain area I have stressed to him that he needs to follow-up with a dentist for this problem and that we would not be able to provide him with any further pain medications for this problem. His blood pressure was also elevated during this visit as it has been on past visits and I stressed that he needed to follow-up with his primary doctor in regard to this. Departure - Departure Time of Disposition: 07:35 Disposition: Home, Self-Care 01 Condition: Good (Improved) Clinical Impression: Dental abscess, Dental caries, Hypertension - Discharge Information Prescriptions: Amoxicillin/Potassium Clav [Augmentin Xr 1,000-62.5 Tab] 1 each PO BID 10 Days # 20 tab.er.12h Hydrocodone/Acetaminophen [[place] 5-325 Tablet] 1 - 2 tab PO Q6H PRN #8 tablet PRN Reason: Moderate to severe pain Instructions: Dental Abscess, [id number] Referrals: Yanira Lockwood MD [Primary Care Provider] - Forms: ED Department Discharge Additional Instructions: You have an abscessed tooth. I am placing you on an antibiotic to treat this infection (Augmentin thousand milligrams). You should take probiotics or eat yogurt daily while you are on the antibiotics. I also gave you a prescription of hydrocodone 5/325 may use for more severe pain. We would not be able to provide you with any further pain medication for this problem. Today, I also injected medication in and around your tooth that will cause parts of your mouth and face to be numb for a variable period of time. You should avoid any hot foods or liquids and be very careful while chewing or talking as you could damage yourself easily. Back to the emergency department for high fever, unrelenting vomiting or any other concerning sign or symptom. Sepsis Event Note - Evaluation Sepsis Screening Result: No Definite Risk - Focused Exam Vital Signs: Vital Signs Temp Pulse Resp BP Pulse Ox 10/30/19 06:44 36.4 C 84 18 171/120 H 100 Date Exam was Performed: 10/30/19 Time Exam was Performed: 08:01
[2019-10-30] MEDS ORDERED: Acetaminophen/HYDROcodone 325-5 MG Tab PO ONE (07:54)
[2019-10-30 08:17] VITALS: BP 182/120; PULSE 83
== END 2019-10-30 08:00 | disposition home or self-care (01) ==
LOC: FB.ED 05:49
DX: K04.7 Periapical abscess without sinus (principal); K02.9 Dental caries, unspecified; I10 Essential (primary) hypertension; J45.909 Unspecified asthma, uncomplicated; F32.9 Major depressive disorder, single episode, unspecified; E66.9 Obesity, unspecified; F17.210 Nicotine dependence, cigarettes, uncomplicated; Z88.5 Allergy status to narcotic agent; Z88.6 Allergy status to analgesic agent; Z88.8 Allergy status to other drugs, medicaments and biological substances; Z79.899 Other long term (current) drug therapy; Z68.42 Body mass index [BMI] 45.0-49.9, adult
CPT/HCPCS: 99283; A9270-GY

== ENCOUNTER 2019-11-04 01:47 | Emergency (ER) | payer MEDICAID ==
[2019-11-04] MEDS ORDERED: Lidocaine 1% with EPINEPHrine 1:100,000 10 ML MDV INJECT ONE (01:48)
--- NOTE | 2019-11-04 02:07 | EDM.PDOC ---
ED HPI GENERAL MEDICAL PROBLEM - General Stated Complaint: TOOTH PAIN Time Seen by Provider: 11/04/19 02:00 Source of Information: Reports: Patient History Limitations: Reports: No Limitations - History of Present Illness INITIAL COMMENTS - FREE TEXT/NARRATIVE: 33-year-old male with history of poor dentition and multiple episodes of dental abscesses and dental pain. I have seen the patient just recently for left upper dental pain. He was treated with a dental block and was given a prescription for Augmentin with some pain medication. He reports that the pain has been waxing and waning and sometimes quite severe. He was seen yesterday in clinic at [facility] and was given a prescription of hydrocodone 5/325 as he had ran out of the prescription and that I gave him. He has been using [id number] topical for his pain without significant relief tonight. He reports that the pain is much more severe tonight and the hydrocodone has not helped with the pain. He reports the pain as a 10/10 and radiates all over the left side of his face and head. He states it feels like there is tightness and muscle spasm in the area as well as a sharp and shooting pain. He is basically crying in pain when he arrives. There are no other associated signs or symptoms. There are no other modifying factors. Onset: Other (Ongoing problems for the past 2-3 weeks.) Duration: Getting Worse (Severe tonight) Location: Reports: Face (Left upper jaw and tooth pain radiating all over his left face and head) Quality: Reports: Sharp, Other (Spasm-like pain) Severity: Severe Improves with: Reports: None Worsens with: Reports: Other ([place]ista), Movement Context: Reports: Other (As above) Associated Symptoms: Reports: No Other Symptoms (Except as above) Treatments [employer]: Reports: NSAIDS, Other Medication(s) (Hydrocodone 5/325. Augmentin 875 mg) - Related Data Allergies Allergy/AdvReac Type Severity Reaction Status Date / Time codeine phosphate Allergy Stomach Verified 10/30/19 06:48 [From Tylenol-Codeine #3] Ache ketorolac tromethamine Allergy Stomach Verified 10/30/19 06:48 [From Toradol] Upset lisinopril Allergy Cough Verified 10/30/19 06:48 tramadol Allergy Vomiting Verified 10/30/19 06:48 Home Meds: Home Meds Losartan/Hydrochlorothiazide [Losartan-HCTZ 100-12.5 MG] 1 each PO DAILY [History] Gabapentin [Neurontin] 900 mg PO TID 03/24/19 [History] Amitriptyline [Elavil] 50 mg PO BEDTIME 10/17/19 [History] Metoprolol Succinate 50 mg PO DAILY 10/17/19 [History] Amoxicillin/Potassium Clav [Augmentin Xr 1,000-62.5 Tab] 1 each PO BID 10 Days # 20 tab.er.12h 10/30/19 [Rx] Hydrocodone/Acetaminophen [[place] 5-325 Tablet] 1 - 2 tab PO Q6H PRN #8 tablet [Rx] Past Medical History Cardiovascular History: Reports: Hypertension Respiratory History: Reports: Asthma Gastrointestinal History: Reports: PUD Musculoskeletal History: Reports: Fracture Other Musculoskeletal History: fx R gt toe Neurological History: Reports: Concussion, Neuropathy, Peripheral, Other (See Below) Other Neuro History: 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 Psychiatric History: Reports: Anxiety, Depression, Panic Attack Endocrine/Metabolic History: Reports: Obesity/BMI 30+ - Infectious Disease History Infectious Disease History: Reports: Chicken Pox, MRSA - Past Surgical History HEENT Surgical History: Reports: Oral Surgery Musculoskeletal Surgical History: Reports: Other (See Below) Other Musculoskeletal Surgeries/Procedures:: r toe surgery Social & Family History - Tobacco Use Smoking Status *Q: Current Every Day Smoker - Caffeine Use Caffeine Use: Reports: Coffee, Soda, Tea - Living Situation & Occupation Living situation: Reports: with Significant Other ED ROS ENT - Review of Systems Review Of Systems: See Below Constitutional: Reports: No Symptoms HEENT: Reports: Dental Pain, Other (Left facial pain) Respiratory: Reports: No Symptoms Cardiovascular: Reports: No Symptoms GI/Abdominal: Reports: No Symptoms : Reports: No Symptoms Musculoskeletal: Reports: No Symptoms Skin: Reports: No Symptoms Neurological: Reports: Headache Psychiatric: Reports: Anxiety Hematologic/Lymphatic: Reports: No Symptoms Immunologic: Reports: No Symptoms ED EXAM, ENT - Physical Exam Exam: See Below Exam Limited By: No Limitations General Appearance: Alert, Moderate Distress (To severe distress secondary to pain.), Obese, Other (Crying in pain) Eye Exam: Bilateral Eye: EOMI, Normal Inspection Ears: Normal External Exam, Normal Canal, Hearing Grossly Normal, TM Erythema ( On left) Nose: Normal Inspection, Normal Mucousa, No Blood Mouth/Throat: Dental Pain (With carious tooth left upper posterior molar), Dental Tenderness, Gum Swelling Head: Facial Tenderness (Over his left infraorbital area.) Neck: Normal Inspection, Supple, Non-Tender, Full Range of Motion Respiratory/Chest: No Respiratory Distress, Lungs Clear, Normal Breath Sounds, No Accessory Muscle Use, Chest Non-Tender Cardiovascular: Normal Peripheral Pulses, Regular Rate, Rhythm, No Murmur GI/Abdominal: Normal Bowel Sounds, Soft, Non-Tender, No Mass Back: Normal Inspection, Full Range of Motion Extremities: Normal Inspection, Normal Range of Motion, Non-Tender, No Pedal Edema, Normal Capillary Refill Neurological: Alert, Oriented, CN II-XII Intact, Normal Cognition, No Motor/ Sensory Deficits Psychiatric: Anxious Skin: Warm, Dry, Intact, Normal Color, No Rash Course - Orders/Labs/Meds Orders: Active Orders 24 hr Category Date Time Status UA W/O MICROSCOPIC [URIN] Routine Lab 11/04/19 02:25 Received Meds: Medications Discontinued Medications Generic Name Dose Route Start Last Admin Trade Name Freq PRN Reason Stop Dose Admin Diazepam 5 mg 11/04/19 02:27 11/04/19 02:39 Valium. PO 11/04/19 02:28 5 mg ONETIME ONE Administration Hydromorphone HCl 2 mg 11/04/19 02:27 Dilaudid IM 11/04/19 02:28 ONETIME ONE Promethazine HCl 25 mg 11/04/19 02:27 Phenergan IM 11/04/19 02:28 ONETIME ONE - Re-Assessments/Exams Free Text/Narrative Re-Assessment/Exam: 11/04/19 02:29: Patient presented with severe left upper dental pain radiating all over the left side of his head and face. He was quite hypertensive with the pain. I attempted to do a total block with her 0.5% Marcaine mixed with 1% lidocaine with epi to the left upper posterior teeth and this was felt by the patient to actually make it worse rather than better. I did give the patient Dilaudid 2 mg and Phenergan 25 mg IM and also Valium 5 mg by mouth. He has hydrocodone 5/325. He is taking Augmentin now. Hopefully this injection and Valium will help relax the muscles in his face and decreased the pain such that the pain medication that he has will be more effective at home later. I have informed the patient that this is really this is the extent of what I could do to provide him with any relief of his pain. And I have told him that I would not be able to provide him with any further pain medications in regard to this. He is to try to follow-up with his dentist on 11/05/2019. I have also discussed with the patient the possibility of some other problem causing this severe pain. I did recommend doing a CT scan of his face to rule out some infection or tumor that could be causing the pain and pressure over the left upper jaw. He refused CT scan of his face at this time. I have strongly advised that he follow -up with his primary provider in regard to this. Departure - Departure Time of Disposition: 02:40 Disposition: Home, Self-Care 01 Condition: Fair (Stable) Clinical Impression: Pain, dental, Left facial pain Left middle ear infection Qualifiers: Otitis media type: unspecified Qualified Code(s): H66.92 - Otitis media, unspecified, left ear - Discharge Information Referrals: PCP,None [Primary Care Provider] - Additional Instructions: Continue the antibiotics that you have been prescribed. Use the pain medications that you have been prescribed. Follow up with a dentist as soon as you can arrange. Sepsis Event Note - Focused Exam Date Exam was Performed: 11/04/19 Time Exam was Performed: 02:40 - My Orders Last 24 Hours: My Active Orders 11/04/19 02:25 UA W/O MICROSCOPIC [URIN] Routine - Assessment/Plan Last 24 Hours: My Active Orders 11/04/19 02:25 UA W/O MICROSCOPIC [URIN] Routine
[2019-11-04] MEDS ORDERED: HYDROmorphone 2 MG/ML SDV IM ONE (02:27)
[2019-11-04] MEDS ORDERED: Promethazine 25 MG/ML SDV IM ONE (02:27)
[2019-11-04] MEDS ORDERED: Diazepam 5 MG Tab PO ONE (02:27)
[2019-11-04 08:22] VITALS: BP 137/88; PULSE 86
== END 2019-11-04 03:15 | disposition home or self-care (01) ==
LOC: FB.ED 01:47
DX: K02.9 Dental caries, unspecified (principal); R51 Headache; H66.92 Otitis media, unspecified, left ear; I10 Essential (primary) hypertension; F41.0 Panic disorder [episodic paroxysmal anxiety]; F32.9 Major depressive disorder, single episode, unspecified; E66.9 Obesity, unspecified; Z68.43 Body mass index [BMI] 50.0-59.9, adult; Z88.5 Allergy status to narcotic agent; Z88.8 Allergy status to other drugs, medicaments and biological substances; Z79.899 Other long term (current) drug therapy; F17.200 Nicotine dependence, unspecified, uncomplicated
CPT/HCPCS: 64400; 96372; 99283-25; A9270-GY; J1170; J2550

== ENCOUNTER 2019-12-13 11:24 | Emergency (ER) | payer MEDICAID ==
[2019-12-13] MEDS ORDERED: Ketorolac 60 MG/2 ML SDV IM ONE (12:18)
[2019-12-13] MEDS ORDERED: Acetaminophen/HYDROcodone 325-5 MG Tab PO ONE (12:22)
--- NOTE | 2019-12-13 12:23 | EDM.PDOC ---
ED HPI GENERAL MEDICAL PROBLEM - General Stated Complaint: HURT KNEE Time Seen by Provider: 12/13/19 12:35 - History of Present Illness INITIAL COMMENTS - FREE TEXT/NARRATIVE: states he hurt his right knee while getting out of bathroom, has pain and swelling in the medial aspect of the knee , states not able to ambulate due to the pain has appt scheduled to have arthroscopy on saturday requesting or pain medication till then Onset: Today Onset Date: 12/13/19 - Related Data Allergies Allergy/AdvReac Type Severity Reaction Status Date / Time codeine phosphate Allergy Stomach Verified 12/13/19 12:29 [From Tylenol-Codeine #3] Ache ketorolac tromethamine Allergy Stomach Verified 12/13/19 12:29 [From Toradol] Upset lisinopril Allergy Cough Verified 12/13/19 12:29 tramadol Allergy Vomiting Verified 12/13/19 12:29 Home Meds: Home Meds Losartan/Hydrochlorothiazide [Losartan-HCTZ 100-12.5 MG] 1 each PO DAILY [History] Gabapentin [Neurontin] 900 mg PO TID 03/24/19 [History] Amitriptyline [Elavil] 50 mg PO BEDTIME 10/17/19 [History] Metoprolol Succinate 50 mg PO DAILY 10/17/19 [History] Acetaminophen/HYDROcodone [[place] 325-5 MG] 1 tab PO Q6H PRN #6 tab 12/13/19 [Rx] Past Medical History - Past Health History Medical/Surgical History: Denies Medical/Surgical History HEENT History: Reports: Other (See Below) Other HEENT History: Dental problems. Cardiovascular History: Reports: Hypertension Respiratory History: Reports: Asthma Gastrointestinal History: Reports: PUD Musculoskeletal History: Reports: Fracture Other Musculoskeletal History: fx R gt toe Neurological History: Reports: Concussion, Neuropathy, Peripheral, Other (See Below) Other Neuro History: 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 Psychiatric History: Reports: Anxiety, Depression, Panic Attack Endocrine/Metabolic History: Reports: Obesity/BMI 30+ - Infectious Disease History Infectious Disease History: Reports: Chicken Pox, MRSA - Past Surgical History HEENT Surgical History: Reports: Oral Surgery Musculoskeletal Surgical History: Reports: Other (See Below) Other Musculoskeletal Surgeries/Procedures:: r toe surgery Social & Family History - Family History Family Medical History: Noncontributory - Caffeine Use Caffeine Use: Reports: Coffee, Soda, Tea - Living Situation & Occupation Living situation: Reports: with Significant Other Review of Systems - Review of Systems Review Of Systems: Comprehensive ROS is negative, except as noted in HPI. ED EXAM, GENERAL - Physical Exam Exam: See Below Exam Limited By: No Limitations General Appearance: Alert, WD/WN, No Apparent Distress Eye Exam: Bilateral Eye: EOMI Ears: Normal External Exam Nose: Normal Inspection Throat/Mouth: Normal Inspection Head: Atraumatic Neck: Non-Tender, Full Range of Motion Respiratory/Chest: No Respiratory Distress Cardiovascular: Normal Peripheral Pulses Extremities: Joint Swelling, Limited Range of Motion, Other ( right knee pain , swelling medially ). No: Pedal Edema, Jeffery's Sign, Increased Warmth, Mottled, Pallor Neurological: Alert, Oriented Course - Vital Signs Last Recorded V/S: Last Vital Signs Temp 36.3 C 12/13/19 12:00 Pulse 102 H 12/13/19 12:00 Resp 18 12/13/19 12:00 BP 138/74 12/13/19 12:00 Pulse Ox 98 12/13/19 12:00 - Orders/Labs/Meds Orders: Active Orders 24 hr Category Date Time Status Knee 3V Rt [CR] Stat Exams 12/13/19 12:02 Taken Meds: Medications Discontinued Medications Generic Name Dose Route Start Last Admin Trade Name Freq PRN Reason Stop Dose Admin Hydrocodone Bitart/Acetaminophen 1 tab 12/13/19 12:22 12/13/19 12:27 [place] 325-5 Mg PO 12/13/19 12:23 1 tab ONETIME ONE Administration Ketorolac Tromethamine 60 mg 12/13/19 12:18 Toradol IM 12/13/19 12:19 ONETIME ONE Departure - Departure Time of Disposition: 13:05 Disposition: Home, Self-Care 01 Condition: Good Clinical Impression: Right knee sprain, Right medial knee pain - Discharge Information *PRESCRIPTION DRUG MONITORING PROGRAM REVIEWED*: Not Applicable *COPY OF PRESCRIPTION DRUG MONITORING REPORT IN PATIENT VALERIE: Not Applicable Prescriptions: Acetaminophen/HYDROcodone [[place] 325-5 MG] 1 tab PO Q6H PRN #6 tab PRN Reason: Pain (Moderate 4-6) Instructions: Knee Sprain, Adult, [id number], Knee Arthroscopy Referrals: PCP,None [Ordering Only Provider] - Forms: ED Department Discharge Sepsis Event Note - Focused Exam Vital Signs: Vital Signs Temp Pulse Resp BP Pulse Ox 12/13/19 12:00 36.3 C 102 H 18 138/74 98 Date Exam was Performed: 12/13/19 Time Exam was Performed: 13:05 - My Orders Last 24 Hours: My Active Orders 12/13/19 12:02 Knee 3V Rt [CR] Stat - Assessment/Plan Last 24 Hours: My Active Orders 12/13/19 12:02 Knee 3V Rt [CR] Stat
[2019-12-13 12:44] VITALS: BP 138/74; PULSE 102
--- NOTE | 2019-12-14 11:24 | CR ---
INDICATION: Right knee pain - twisted right knee. RIGHT KNEE: Three views of the right knee were obtained 12/13/19 and compared with 09/12/19. Increased calcification of a calcific density is noted at the medial aspect of the medial femoral condyle likely representing a dystrophic soft tissue calcification from a previous injury in the soft tissue in that area. Hypertrophic degenerative changes are noted at the intercondylar notch and spines, slightly progressive compared with the previous examination. Femorotibial joint spaces appear to be fairly well maintained. There appears to be narrowing of the lateral patellofemoral joint space with hypertrophic changes of moderate degree most prominent laterally. An acute fracture, dislocation or definite joint effusion was not identified. However, there does appear to be a slight bulge at the suprapatellar bursa raising question of a small knee joint effusion Depending upon clinical correlation, MRI may be helpful for further evaluation in that regard. IMPRESSION: 1. Question of a small knee joint effusion with no definite fracture or dislocation identified. 2. Mild osteoarthritis. MTDD
== END 2019-12-13 13:10 | disposition home or self-care (01) ==
LOC: FB.ED 11:24
DX: S83.91XA Sprain of unspecified site of right knee, initial encounter (principal); J45.909 Unspecified asthma, uncomplicated; I10 Essential (primary) hypertension; G62.9 Polyneuropathy, unspecified; E66.9 Obesity, unspecified; Z88.5 Allergy status to narcotic agent; Z88.8 Allergy status to other drugs, medicaments and biological substances; X58.XXXA Exposure to other specified factors, initial encounter
CPT/HCPCS: 73562; 99283; A9270

== ENCOUNTER 2019-12-18 13:42 | Emergency (ER) | payer MEDICAID ==
--- NOTE | 2019-12-18 13:51 | EDM.PDOC ---
ED HPI GENERAL MEDICAL PROBLEM - General Chief Complaint: Lower Extremity Injury/Pain Stated Complaint: PAIN R KNEE Time Seen by Provider: 12/18/19 13:48 Source of Information: Reports: Patient History Limitations: Reports: No Limitations - History of Present Illness INITIAL COMMENTS - FREE TEXT/NARRATIVE: 34-year-old male with intermittent right knee pain since 2007 and reports in August 2019, he injured his right knee and he has had intermittent swelling and pain in the area. He apparently was seen by Dr. Duffy, orthopedist at [facility], and was initially set up to have surgery on his right knee for an ACL tear and unfortunately he was not able to have the surgery done here because anesthesia was unable to perform the surgery secondary to the patient's elevated BMI. He was therefore referred to outside orthopedist in [place], Dr. Gray, and is supposed to be getting treatment and surgery through him in the future. He was seen on 12/13/[address] Majano in this emergency department complaining of pain in his right knee and was given a small prescription of hydrocodone 5/325 was also told that we would not be able to provide him with any further pain control for his chronic knee pain. Apparently, this morning he was doing some work outside and he twisted his right knee and "tweaked it"and now has 8/10 level of throbbing pain in the right knee. There is also some swelling. He has taken Tylenol for his pain. There are no other associated signs or symptoms. There are no other modifying factors. Onset: Today Duration: Getting Worse Location: Reports: Lower Extremity, Right (Right knee) Quality: Reports: Ache, Throbbing Severity: Moderate Improves with: Reports: Rest Worsens with: Reports: Other (Palpation), Movement Context: Reports: Other Associated Symptoms: Reports: No Other Symptoms Treatments [employer]: Reports: Acetaminophen right knee Pain Score (Numeric/FACES): 8 - Related Data Allergies Allergy/AdvReac Type Severity Reaction Status Date / Time codeine phosphate Allergy Stomach Verified 12/18/19 14:04 [From Tylenol-Codeine #3] Ache ketorolac tromethamine Allergy Stomach Verified 12/18/19 14:04 [From Toradol] Upset lisinopril Allergy Cough Verified 12/18/19 14:04 tramadol Allergy Vomiting Verified 12/18/19 14:04 Home Meds: Home Meds Losartan/Hydrochlorothiazide [Losartan-HCTZ 100-12.5 MG] 1 each PO DAILY [History] Gabapentin [Neurontin] 900 mg PO TID 03/24/19 [History] Amitriptyline [Elavil] 50 mg PO BEDTIME 10/17/19 [History] Metoprolol Succinate 50 mg PO DAILY 10/17/19 [History] Acetaminophen/HYDROcodone [[place] 325-5 MG] 1 tab PO Q6H PRN #6 tab 12/13/19 [Rx] Diclofenac Sodium [Voltaren 1% Gel] 1 applic TOP QID PRN #1 tube 12/18/19 [Rx] Past Medical History HEENT History: Reports: Other (See Below) Other HEENT History: Dental problems. Cardiovascular History: Reports: Hypertension Respiratory History: Reports: Asthma Gastrointestinal History: Reports: PUD Musculoskeletal History: Reports: Fracture Other Musculoskeletal History: fx R gt toe Neurological History: Reports: Concussion, Neuropathy, Peripheral, Other (See Below) Other Neuro History: 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 Psychiatric History: Reports: Anxiety, Depression, Panic Attack Endocrine/Metabolic History: Reports: Obesity/BMI 30+ - Infectious Disease History Infectious Disease History: Reports: Chicken Pox, MRSA - Past Surgical History HEENT Surgical History: Reports: Oral Surgery Musculoskeletal Surgical History: Reports: Other (See Below) Other Musculoskeletal Surgeries/Procedures:: r toe surgery Social & Family History - Tobacco Use Smoking Status *Q: Current Every Day Smoker - Caffeine Use Caffeine Use: Reports: Coffee, Soda, Tea - Living Situation & Occupation Living situation: Reports: with Significant Other Social History Comment: He arrives to the ER by himself today. Review of Systems - Review of Systems Review Of Systems: See Below Constitutional: Reports: No Symptoms Eyes: Reports: No Symptoms Ears: Reports: No Symptoms Nose: Reports: Other (Nasal congestion) Mouth/Throat: Reports: No Symptoms Respiratory: Reports: Cough, Sputum, Other (On antibiotics for bronchitis and reactive airway disease) Cardiovascular: Reports: No Symptoms GI/Abdominal: Reports: No Symptoms Genitourinary: Reports: No Symptoms Musculoskeletal: Reports: Other (Right knee pain) Skin: Reports: No Symptoms Neurological: Reports: No Symptoms Psychiatric: Reports: Anxiety ED EXAM, GENERAL - Physical Exam Exam: See Below Exam Limited By: No Limitations General Appearance: Alert, WD/WN, Mild Distress, Other (Nontoxic appearing) Eye Exam: Bilateral Eye: EOMI, Normal Inspection Ears: Normal External Exam, Hearing Grossly Normal Ear Exam: Bilateral Ear: Auricle Normal Nose: No Blood, Nasal Drainage Throat/Mouth: Normal Inspection, Normal Oropharynx, Normal Voice, No Airway Compromise Head: Atraumatic, Normocephalic Neck: Normal Inspection, Supple, Non-Tender, Full Range of Motion Respiratory/Chest: No Respiratory Distress, No Accessory Muscle Use, Chest Non- Tender, Wheezing (Some scattered wheezing that clears with cough), Other (Good air movement) Cardiovascular: Normal Peripheral Pulses, Regular Rate, Rhythm, No JVD Peripheral Pulses: 2+: Radial (L), Radial (R), Dorsalis Pedis (R) GI/Abdominal: Normal Bowel Sounds, Soft, Non-Tender, No Mass Back Exam: Normal Inspection Extremities: No Pedal Edema, Normal Capillary Refill, Joint Swelling (Mild right knee swelling with pain.). No: Increased Warmth, Redness Neurological: Alert, Oriented, CN II-XII Intact, Normal Cognition, No Motor/ Sensory Deficits Skin Exam: Warm, Dry, Intact, Normal Color, No Rash Course - Vital Signs Last Recorded V/S: Last Vital Signs Temp 36.8 C 12/18/19 14:00 Pulse 91 12/18/19 14:00 Resp 17 12/18/19 14:00 BP 169/99 H 12/18/19 14:00 Pulse Ox 98 12/18/19 14:00 - Re-Assessments/Exams Free Text/Narrative Re-Assessment/Exam: 12/18/19 14:20: Patient with exacerbation of chronic right knee pain. He has been diagnosed with an ACL tear and is supposed to be getting surgery on his right knee in the future. He was to have surgery to Dr. Duffy but his BMI was too great for the anesthesia group to be able to do him here at [facility] and therefore Dr. Duffy referred him to Dr. Gray, orthopedist in [place] and Dr. Gray's office is to call the patient with appointment. I have explained him that I cannot provide him with narcotic-type pain medicines for chronic conditions and I we will provide him with a prescription for Voltaren gel topical. He should continue to take Tylenol 1000 mg by mouth every 6 hours as needed for pain. He was also advised to get an [id number] knee support brace and use this. He was also advised to avoid strenuous use with his right leg. Precautions and reasons for return to the emergency department were discussed with the patient prior to his discharge. Departure - Departure Time of Disposition: 14:30 Disposition: Home, Self-Care 01 Condition: Good Clinical Impression: Internal derangement of right knee, Chronic pain of right knee - Discharge Information Prescriptions: Diclofenac Sodium [Voltaren 1% Gel] 1 applic TOP QID PRN #1 tube PRN Reason: Knee pain Instructions: Knee Pain, Adult, [id number] Referrals: Yanira Lockwood MD [Primary Care Provider] - Forms: ED Department Discharge Additional Instructions: You should be receiving a call from Dr. Grant Gray's office, orthopedic surgeon in [place], to get an appointment to see him for surgery on your right knee. If you do not hear from him by the beginning of this next week, you should call the orthopedic clinic at [facility] to have them follow- up on your referral to Dr. Gray. Take Tylenol 1000 mg by mouth every 6 hours as needed for pain. Medication as prescribed (diclofenac gel). Use an over-the- counter knee brace for support of your right knee. Back to the emergency department for redness in the knee, increased warmth in your knee, fever, marked increase in swelling or pain or any other concerning sign or symptom. Sepsis Event Note - Focused Exam Vital Signs: Vital Signs Temp Pulse Resp BP Pulse Ox 12/18/19 14:00 36.8 C 91 17 169/99 H 98 Date Exam was Performed: 12/18/19 Time Exam was Performed: 14:38
== END 2019-12-18 14:39 | disposition home or self-care (01) ==
LOC: FB.ED 13:42
CPT/HCPCS: 99283

== ENCOUNTER 2020-05-01 02:18 | Emergency (ER) | payer MEDICAID ==
[2020-05-01] MEDS ORDERED: Ibuprofen 600 MG Tab PO ONE (02:51)
--- NOTE | 2020-05-01 03:08 | EDM.PDOC ---
ED HPI GENERAL MEDICAL PROBLEM - General Chief Complaint: Lower Extremity Injury/Pain Stated Complaint: KNEE INJURY Time Seen by Provider: 05/01/20 03:03 Source of Information: Reports: Patient History Limitations: Reports: No Limitations - History of Present Illness INITIAL COMMENTS - FREE TEXT/NARRATIVE: Patient felt a pop in his right knee while dancing at a bar this evening. He is unable to bear weight on the right leg due to pain. He has a prior history of a right ACL tear (08/2019) but did not follow up for repair. Patient admits to drinking alcohol this evening. Denies any other complaints. Duration: Hour(s): (1) Location: Reports: Lower Extremity, Right Quality: Reports: Ache Severity: Moderate - Related Data Allergies Allergy/AdvReac Type Severity Reaction Status Date / Time codeine phosphate Allergy Stomach Verified 12/18/19 14:04 [From Tylenol-Codeine #3] Ache ketorolac tromethamine Allergy Stomach Verified 12/18/19 14:04 [From Toradol] Upset lisinopril Allergy Cough Verified 12/18/19 14:04 tramadol Allergy Vomiting Verified 12/18/19 14:04 Home Meds: Home Meds Losartan/Hydrochlorothiazide [Losartan-HCTZ 100-12.5 MG] 1 each PO DAILY 10/12/18 [History] Gabapentin [Neurontin] 900 mg PO TID 03/24/19 [History] Amitriptyline [Elavil] 50 mg PO BEDTIME 10/17/19 [History] Metoprolol Succinate 50 mg PO DAILY 10/17/19 [History] Diclofenac Sodium [Voltaren 1% Gel] 1 applic TOP QID PRN #1 tube 12/18/19 [Rx] Past Medical History HEENT History: Reports: Other (See Below) Other HEENT History: Dental problems. Cardiovascular History: Reports: Hypertension Respiratory History: Reports: Asthma Gastrointestinal History: Reports: PUD Musculoskeletal History: Reports: Fracture Other Musculoskeletal History: fx R gt toe Neurological History: Reports: Concussion, Neuropathy, Peripheral, Other (See Below) Other Neuro History: 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 Psychiatric History: Reports: Anxiety, Depression, Panic Attack Endocrine/Metabolic History: Reports: Obesity/BMI 30+ - Infectious Disease History Infectious Disease History: Reports: Chicken Pox, MRSA - Past Surgical History HEENT Surgical History: Reports: Oral Surgery Musculoskeletal Surgical History: Reports: Other (See Below) Other Musculoskeletal Surgeries/Procedures:: r toe surgery Social & Family History - Family History Family Medical History: Noncontributory - Caffeine Use Caffeine Use: Reports: Coffee, Soda, Tea - Alcohol Use Alcohol Use History: Yes - Living Situation & Occupation Living situation: Reports: with Significant Other Review of Systems - Review of Systems Review Of Systems: Comprehensive ROS is negative, except as noted in HPI. ED EXAM, GENERAL - Physical Exam Exam: See Below Exam Limited By: No Limitations General Appearance: Alert, WD/WN, No Apparent Distress Nose: Normal Inspection Throat/Mouth: No Airway Compromise Head: Atraumatic, Normocephalic Neck: Full Range of Motion Respiratory/Chest: No Respiratory Distress Peripheral Pulses: 2+: Dorsalis Pedis (R) Extremities: Normal Inspection, Normal Range of Motion, No Pedal Edema, Normal Capillary Refill, Other (Tenderness to medial aspect right knee, no laxity, drawer sign negative, no deformity) Neurological: Alert, Normal Cognition, No Motor/Sensory Deficits Skin Exam: Warm, Dry, Intact Course - Vital Signs Last Recorded V/S: Last Vital Signs Temp 36.6 C 05/01/20 03:10 Pulse 81 05/01/20 06:35 Resp 20 05/01/20 06:35 BP 105/60 05/01/20 06:35 Pulse Ox 95 05/01/20 06:35 - Orders/Labs/Meds Orders: Active Orders 24 hr Category Date Time Status Knee 3V Lt [CR] Stat Exams 05/01/20 02:23 Taken Sodium Chloride 0.9% [Normal Saline] 1,000 ml Med 05/01/20 04:30 Active IV ASDIRECTED Sodium Chloride 0.9% [Saline Flush] Med 05/01/20 03:17 Active 10 ml FLUSH ASDIRECTED PRN Saline Lock Insert [OM.PC] Routine Oth 05/01/20 03:17 Ordered Medication Orders Sodium Chloride (Normal Saline) 1,000 mls @ 150 mls/hr IV ASDIRECTED MAYKEL Last Admin: 05/01/20 04:30 Dose: 150 mls/hr Documented by: LINHNLOR Sodium Chloride (Saline Flush) 10 ml FLUSH ASDIRECTED PRN PRN Reason: Keep Vein Open Labs: Laboratory Tests 06/05/01/20 05/01/20 Range/Units 02:55 03:25 03:25 WBC 9.2 (4.5-12.0) X10-3/uL RBC 5.19 (4.30-5.75) x10(6)uL Hgb 14.6 (13.5-17.8) g/dL Hct 45.5 (30.0-51.3) % MCV 87.6 (80-96) fL MCH 28.2 (27.7-33.6) pg MCHC 32.2 (32.2-35.4) g/dL RDW 13.8 (11.5-15.5) % Plt Count 280 (125-369) X10(3)uL MPV 7.4 (7.4-10.4) fL Neut % (Auto) 63.9 (46-82) % Lymph % (Auto) 25.7 (13-37) % Sharp % (Auto) 7.9 (4-12) % Eos % (Auto) 2 (1.0-5.0) % Baso % (Auto) 1 (0-2) % Neut # (Auto) 5.8 (1.6-8.3) # Lymph # (Auto) 2.4 (0.6-5.0) # Sharp # (Auto) 0.7 (0.0-1.3) # Eos # (Auto) 0.2 (0.0-0.8) # Baso # (Auto) 0.1 (0.0-0.2) # POC VBG pH Cancelled POC VBG pCO2 Cancelled POC VBG HCO3 Cancelled POC VBG Total CO2 Cancelled POC VBG Base Excess Cancelled Sodium 142 (135-145) mmol/L Potassium 3.4 L (3.5-5.3) mmol/L Chloride 104 (100-110) mmol/L Carbon Dioxide 28 (21-32) mmol/L BUN 21 H (7-18) mg/dL Creatinine 1.4 H (0.70-1.30) mg/dL Est Cr Clr Drug Dosing TNP Estimated GFR (MDRD) 58 L (>60) BUN/Creatinine Ratio 15.0 (9-20) Glucose 97 (80-116) mg/dL Calcium 8.3 L (8.6-10.2) mg/dL Total Bilirubin 1.1 (0.1-1.3) mg/dL AST 53 H D (5-25) IU/L ALT 99 H D (12-36) U/L Alkaline Phosphatase 82 (56-112) IU/L Total Protein 7.4 (6.0-8.0) g/dL Albumin 3.7 (3.5-5.2) g/dL Globulin 3.7 g/dL Albumin/Globulin Ratio 1.0 Urine Opiates Screen (NEGATIVE) Ur Oxycodone Screen (NEGATIVE) Ur Propoxyphene Screen (NEGATIVE) Ur Barbituates Screen (NEGATIVE) Ur Tricyclics Screen (NEGATIVE) Ur Phencyclidine Scrn (NEGATIVE) Ur Amphetamine Screen (NEGATIVE) Urine MDMA Screen (NEGATIVE) U Benzodiazepines Scrn (NEGATIVE) U Cocaine Metab Screen (NEGATIVE) U Marijuana (THC) Screen (NEGATIVE) Ethyl Alcohol (<0.03) % 05/01/20 05/01/20 Range/Units 03:25 07:05 WBC (4.5-12.0) X10-3/uL RBC (4.30-5.75) x10(6)uL Hgb (13.5-17.8) g/dL Hct (30.0-51.3) % MCV (80-96) fL MCH (27.7-33.6) pg MCHC (32.2-35.4) g/dL RDW (11.5-15.5) % Plt Count (125-369) X10(3)uL MPV (7.4-10.4) fL Neut % (Auto) (46-82) % Lymph % (Auto) (13-37) % Sharp % (Auto) (4-12) % Eos % (Auto) (1.0-5.0) % Baso % (Auto) (0-2) % Neut # (Auto) (1.6-8.3) # Lymph # (Auto) (0.6-5.0) # Sharp # (Auto) (0.0-1.3) # Eos # (Auto) (0.0-0.8) # Baso # (Auto) (0.0-0.2) # POC VBG pH POC VBG pCO2 POC VBG HCO3 POC VBG Total CO2 POC VBG Base Excess Sodium (135-145) mmol/L Potassium (3.5-5.3) mmol/L Chloride (100-110) mmol/L Carbon Dioxide (21-32) mmol/L BUN (7-18) mg/dL Creatinine (0.70-1.30) mg/dL Est Cr Clr Drug Dosing Estimated GFR (MDRD) (>60) BUN/Creatinine Ratio (9-20) Glucose (80-116) mg/dL Calcium (8.6-10.2) mg/dL Total Bilirubin (0.1-1.3) mg/dL AST (5-25) IU/L ALT (12-36) U/L Alkaline Phosphatase (56-112) IU/L Total Protein (6.0-8.0) g/dL Albumin (3.5-5.2) g/dL Globulin g/dL Albumin/Globulin Ratio Urine Opiates Screen Negative (NEGATIVE) Ur Oxycodone Screen Negative (NEGATIVE) Ur Propoxyphene Screen Negative (NEGATIVE) Ur Barbituates Screen Negative (NEGATIVE) Ur Tricyclics Screen Negative (NEGATIVE) Ur Phencyclidine Scrn Negative (NEGATIVE) Ur Amphetamine Screen Negative (NEGATIVE) Urine MDMA Screen Negative (NEGATIVE) U Benzodiazepines Scrn Positive H (NEGATIVE) U Cocaine Metab Screen Negative (NEGATIVE) U Marijuana (THC) Screen Negative (NEGATIVE) Ethyl Alcohol 0.18 H* (<0.03) % Meds: Medications Generic Name Dose Route Start Last Admin Trade Name Freq PRN Reason Stop Dose Admin Sodium Chloride 1,000 mls @ 150 mls/hr 05/01/20 04:30 05/01/20 04:30 Normal Saline IV 150 mls/hr ASDIRECTED MAYKEL Administration Sodium Chloride 10 ml 05/01/20 03:17 Saline Flush FLUSH ASDIRECTED PRN Keep Vein Open Discontinued Medications Generic Name Dose Route Start Last Admin Trade Name Freq PRN Reason Stop Dose Admin Sodium Chloride 1,000 mls @ 999 mls/hr 05/01/20 03:17 05/01/20 03:30 Normal Saline IV 05/01/20 04:17 999 mls/hr .BOLUS ONE Administration Ibuprofen 600 mg 05/01/20 02:51 05/01/20 07:16 Motrin PO 05/01/20 02:52 600 mg ONETIME ONE Administration Ibuprofen Confirm 05/01/20 07:13 05/01/20 07:23 Motrin Administered 05/01/20 07:14 Not Given Dose 600 mg .ROUTE .STK-MED ONE Thiamine HCl 100 mg 05/01/20 03:23 05/01/20 04:27 Vitamin B-1 IVPUSH 05/01/20 03:24 100 mg ONETIME ONE Administration - Radiology Interpretation Free Text/Narrative:: Right Knee Xray: No fracture or dislocation. (ED provider interpretation) - Re-Assessments/Exams Free Text/Narrative Re-Assessment/Exam: 05/01/20 03:08 Placed in a knee immobilizer and fitted with crutches. 05/01/20 07:27 At @0315 patient fell asleep and was difficult to arouse. IVF, Thiamine, and labs were ordered. He awoke @0700 complaining of right knee pain. VSS. Departure - Departure Time of Disposition: 07:29 Disposition: Home, Self-Care 01 Condition: Good Clinical Impression: Strain of right knee Qualifiers: Encounter type: initial encounter Qualified Code(s): S86.911A - Strain of unspecified muscle(s) and tendon(s) at lower leg level, right leg, initial encounter Alcohol intoxication Qualifiers: Complication of substance-induced condition: uncomplicated Qualified Code(s): F10.920 - Alcohol use, unspecified with intoxication, uncomplicated - Discharge Information *PRESCRIPTION DRUG MONITORING PROGRAM REVIEWED*: Yes *COPY OF PRESCRIPTION DRUG MONITORING REPORT IN PATIENT VALERIE: No Instructions: Crutch Use, Adult, [id number], Knee Sprain, Adult, [id number], How to Use a Knee Immobilizer, [id number], Alcohol Intoxication, [id number] Referrals: Sha Colmenares MD [Ordering Only Provider] - 3 Days Forms: ED Department Discharge Additional Instructions: Follow up with [facility] in 3 days. You may take Ibuprofen or Tylenol as needed for pain. Wear the knee immobilizer. Use the crutches to weight bear as tolerated. Avoid excessive alcohol consumption. Sepsis Event Note (ED) - Focused Exam Vital Signs: Vital Signs Temp Pulse Resp BP Pulse Ox 05/01/20 06:35 81 20 105/60 95 05/01/20 03:15 93 20 104/54 L 88 L 05/01/20 03:10 36.6 C 93 20 92/40 L 94 L 05/01/20 02:30 95 20 96/44 L 90 L - My Orders Last 24 Hours: My Active Orders 05/01/20 02:23 Knee 3V Lt [CR] Stat 05/01/20 03:17 Sodium Chloride 0.9% [Saline Flush] 10 ml FLUSH ASDIRECTED PRN Saline Lock Insert [OM.PC] Routine 05/01/20 04:30 Sodium Chloride 0.9% [Normal Saline] 1,000 ml IV ASDIRECTED - Assessment/Plan Last 24 Hours: My Active Orders 05/01/20 02:23 Knee 3V Lt [CR] Stat 05/01/20 03:17 Sodium Chloride 0.9% [Saline Flush] 10 ml FLUSH ASDIRECTED PRN Saline Lock Insert [OM.PC] Routine 05/01/20 04:30 Sodium Chloride 0.9% [Normal Saline] 1,000 ml IV ASDIRECTED
[2020-05-01] MEDS ORDERED: Sodium Chloride 0.9% 1,000 ML IV ONE (03:17)
[2020-05-01] MEDS ORDERED: Sodium Chloride 0.9% 10 ML Syringe FLUSH PRN (03:17)
[2020-05-01] MEDS ORDERED: Thiamine 200 MG/2 ML MDV IVPUSH ONE (03:23)
[2020-05-01] MEDS ORDERED: Sodium Chloride 0.9% 1,000 ML IV SCH (04:30)
[2020-05-01 06:37] VITALS: BP 105/60; PULSE 81
[2020-05-01] MEDS ORDERED: Ibuprofen 600 MG Tab ONE (07:13)
--- NOTE | 2020-05-02 11:23 | CR ---
INDICATION: Injury - walking, felt a pop and severe medial knee pain. RIGHT KNEE: Two views of the right knee were obtained 05/01/20 and compared with 12/13/19, again revealing question of a minimal knee joint effusion with mild hypertrophic degenerative changes. Femorotibial joint spaces appear to be fairly well maintained allowing for changes in positioning. A definite acute fracture or dislocation was not identified. If soft tissue injury is suspected clinically, MRI of the right knee may be helpful for further evaluation. TEED
== END 2020-05-01 08:00 | disposition home or self-care (01) ==
LOC: FB.ED 02:18
DX: S86.911A Strain of unspecified muscle(s) and tendon(s) at lower leg level, right leg, initial encounter (principal); F10.120 Alcohol abuse with intoxication, uncomplicated; J45.909 Unspecified asthma, uncomplicated; I10 Essential (primary) hypertension; E66.9 Obesity, unspecified; F32.9 Major depressive disorder, single episode, unspecified; Z68.42 Body mass index [BMI] 45.0-49.9, adult; Z88.5 Allergy status to narcotic agent; Z88.6 Allergy status to analgesic agent; Z88.8 Allergy status to other drugs, medicaments and biological substances; Y90.6 Blood alcohol level of 120-199 mg/100 ml; Y93.41 Activity, dancing
CPT/HCPCS: 36415; 73562; 80053; 80305; 80307; 85025; 96361; 96374; 99284; A9270; J3411; J7030

== ENCOUNTER 2020-10-19 12:17 | Emergency (ER) | payer MEDICAID ==
--- NOTE | 2020-10-19 14:07 | EDM.PDOC ---
ED HPI GENERAL MEDICAL PROBLEM - General Chief Complaint: Respiratory Problem Stated Complaint: COVID??? Time Seen by Provider: 10/19/20 12:50 Source of Information: Reports: Patient History Limitations: Reports: No Limitations - History of Present Illness INITIAL COMMENTS - FREE TEXT/NARRATIVE: Patient was referred to the ED from his clinic because of cough/cold and dyspnea for 1 week. He also c/o fever,chills, body malaise. He had an epsiode of N/VD last week which has resolved. He had a covid test done 1 week ago which was negative. - Related Data Allergies Allergy/AdvReac Type Severity Reaction Status Date / Time codeine phosphate Allergy Stomach Verified 10/19/20 12:24 [From Tylenol-Codeine #3] Ache ketorolac tromethamine Allergy Stomach Verified 10/19/20 12:24 [From Toradol] Upset lisinopril Allergy Cough Verified 10/19/20 12:24 tramadol Allergy Vomiting Verified 10/19/20 12:24 Home Meds: Home Meds Losartan/Hydrochlorothiazide [Losartan-HCTZ 100-12.5 MG] 1 each PO DAILY 10/12/18 [History] Gabapentin [Neurontin] 900 mg PO TID 03/24/19 [History] Metoprolol Succinate 50 mg PO DAILY 10/17/19 [History] FLUoxetine [PROzac] 10 mg PO DAILY 10/19/20 [History] Ondansetron [Zofran ODT] 4 mg PO Q4H PRN #5 tab.dis 10/19/20 [Rx] predniSONE [Prednisone] 40 mg PO DAILY #10 tablet 10/19/20 [Rx] Past Medical History HEENT History: Reports: Other (See Below) Other HEENT History: Dental problems. Cardiovascular History: Reports: Hypertension Respiratory History: Reports: Asthma Gastrointestinal History: Reports: PUD Musculoskeletal History: Reports: Fracture Other Musculoskeletal History: fx R gt toe Neurological History: Reports: Concussion, Neuropathy, Peripheral, Other (See Below) Other Neuro History: 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 Psychiatric History: Reports: Anxiety, Depression, Panic Attack Endocrine/Metabolic History: Reports: Obesity/BMI 30+ - Infectious Disease History Infectious Disease History: Reports: Chicken Pox, MRSA - Past Surgical History HEENT Surgical History: Reports: Oral Surgery GI Surgical History: Reports: None Musculoskeletal Surgical History: Reports: Other (See Below) Other Musculoskeletal Surgeries/Procedures:: r toe surgery Social & Family History - Family History Family Medical History: No Pertinent Family History - Tobacco Use Tobacco Use Status *Q: Former Tobacco User Used Tobacco, but Quit: Yes Month/Year Tobacco Last Used: 06/2020 - Caffeine Use Caffeine Use: Reports: Soda - Recreational Drug Use Recreational Drug Use: Yes Recreational Drug Type: Reports: Marijuana/Hashish Recreational Drug Use Frequency: Socially - Living Situation & Occupation Living situation: Reports: with Significant Other ED ROS GENERAL - Review of Systems Review Of Systems: See Below Constitutional: Reports: No Symptoms HEENT: Reports: No Symptoms Respiratory: Reports: Shortness of Breath, Cough Cardiovascular: Reports: No Symptoms Endocrine: Reports: No Symptoms GI/Abdominal: Reports: No Symptoms : Reports: No Symptoms Musculoskeletal: Reports: No Symptoms Skin: Reports: No Symptoms Neurological: Reports: No Symptoms Psychiatric: Reports: No Symptoms ED EXAM, GENERAL - Physical Exam Exam: See Below Exam Limited By: No Limitations General Appearance: Alert, No Apparent Distress Eye Exam: Bilateral Eye: PERRL Nose: Normal Inspection, Normal Mucosa Throat/Mouth: Normal Inspection, Normal Lips, Normal Teeth Head: Atraumatic, Normocephalic Neck: Normal Inspection, Supple, Non-Tender Respiratory/Chest: No Respiratory Distress, Lungs Clear, Rhonchi Cardiovascular: Normal Peripheral Pulses, Regular Rate, Rhythm, No Edema Back Exam: Normal Inspection, Full Range of Motion Extremities: Normal Inspection, Normal Range of Motion Course - Vital Signs Text/Narrative:: Labs/CXR was discussed with patient Last Recorded V/S: Last Vital Signs Temp 36.5 C 10/19/20 12:40 Pulse 86 10/19/20 12:40 Resp 26 H 10/19/20 12:40 BP 157/107 H 10/19/20 12:40 Pulse Ox 99 10/19/20 12:40 - Orders/Labs/Meds Orders: Active Orders 24 hr Category Date Time Status Chest 1V Frontal [CR] Stat Exams 10/19/20 12:50 Taken Isolation [COMM] Routine Oth 10/19/20 12:51 Ordered Labs: Laboratory Tests 10/19/20 10/19/20 10/19/20 Range/Units 12:50 13:15 13:15 WBC 8.0 (3.2-10.1) x10-3/uL RBC 5.60 (3.90-5.90) x10(6)uL Hgb 16.1 (12.9-17.7) g/dL Hct 47.9 (38.3-50.1) % MCV 85.6 (80.8-98.7) fL MCH 28.7 (27.0-33.3) pg MCHC 33.5 (28.7-35.3) g/dL RDW 12.9 (12.4-15.0) % Plt Count 241 (117-477) x10(3)uL MPV 7.6 (6.7-11.0) fL Neut % (Auto) 68.4 (40.3-71.8) % Lymph % (Auto) 23.5 (15.8-45.3) % Calvert % (Auto) 4.8 L (5.5-15.2) % Eos % (Auto) 2.7 (0.1-6.8) % Baso % (Auto) 0.6 (0.3-3.8) % Neut # (Auto) 5.4 (1.7-6.9) x10-3/uL Lymph # (Auto) 1.9 (0.5-4.5) x10-3/uL Calvert # (Auto) 0.4 (0.0-1.2) x10-3/uL Eos # (Auto) 0.2 (0.0-0.6) x10-3/uL Baso # (Auto) 0.0 (0.0-0.3) x10-3/uL Sodium 139 (135-145) mmol/L Potassium 4.2 (3.5-5.3) mmol/L Chloride 105 (100-110) mmol/L Carbon Dioxide 26 (21-32) mmol/L BUN 17 (7-18) mg/dL Creatinine 1.0 (0.70-1.30) mg/dL Est Cr Clr Drug Dosing 116.52 mL/min Estimated GFR (MDRD) > 60 (>60) BUN/Creatinine Ratio 17.0 (9-20) Glucose 105 (80-116) mg/dL Calcium 8.5 L (8.6-10.2) mg/dL Total Bilirubin 1.5 H (0.1-1.3) mg/dL AST 37 H D (5-25) IU/L ALT 43 H D (12-36) U/L Alkaline Phosphatase 86 (56-112) IU/L Total Protein 7.3 (6.0-8.0) g/dL Albumin 3.5 (3.5-5.2) g/dL Globulin 3.8 g/dL Albumin/Globulin Ratio 0.9 SARS-CoV-2 RNA (VIDAL) Negative (NEGATIVE) Departure - Departure Time of Disposition: 14:05 Disposition: Home, Self-Care 01 Condition: Good Clinical Impression: Acute viral syndrome - Discharge Information Prescriptions: predniSONE [Prednisone] 40 mg PO DAILY #10 tablet Ondansetron [Zofran ODT] 4 mg PO Q4H PRN #5 tab.dis PRN Reason: Nausea Referrals: PCP,None [Primary Care Provider] - Sepsis Event Note (ED) - Evaluation Sepsis Screening Result: Possible Sepsis Risk - Focused Exam Vital Signs: Vital Signs Temp Pulse Resp BP Pulse Ox 10/19/20 12:40 36.5 C 86 26 H 157/107 H 99 - My Orders Last 24 Hours: My Active Orders 10/19/20 12:50 Chest 1V Frontal [CR] Stat 10/19/20 12:51 Isolation [COMM] Routine - Assessment/Plan Last 24 Hours: My Active Orders 10/19/20 12:50 Chest 1V Frontal [CR] Stat 10/19/20 12:51 Isolation [COMM] Routine
[2020-10-19 15:13] VITALS: BP 160/104; PULSE 77
--- NOTE | 2020-10-19 15:59 | CR ---
INDICATION: Cough, dyspnea, COVID symptoms. CHEST ONE VIEW: Portable AP upright view of the chest 10/19/20 was compared with 01/30/19 and 06/11/16 again revealing the heart to be normal in size. Mediastinum was essentially unremarkable. Exogenous obesity is noted. Poor inspiration emphasizes markings without a definite active infiltrate or effusion. However, markings are somewhat heavy at the lung bases due to the poor inspiration making it difficult to exclude patchy bronchopneumonia in the lung bases. However, no gross consolidating pneumonia, or effusion was identified. When clinically possibly, full inspiration PA and lateral views of the chest may be helpful for further evaluation. MTDD
== END 2020-10-19 14:35 | disposition home or self-care (01) ==
LOC: FB.ED 12:17
DX: B34.9 Viral infection, unspecified (principal); I10 Essential (primary) hypertension; J45.909 Unspecified asthma, uncomplicated; E66.9 Obesity, unspecified; F41.9 Anxiety disorder, unspecified; F32.9 Major depressive disorder, single episode, unspecified; Z87.891 Personal history of nicotine dependence; Z20.828 Contact with and (suspected) exposure to other viral communicable diseases; Z88.5 Allergy status to narcotic agent; Z88.6 Allergy status to analgesic agent; Z88.8 Allergy status to other drugs, medicaments and biological substances; Z68.42 Body mass index [BMI] 45.0-49.9, adult; Z79.899 Other long term (current) drug therapy
CPT/HCPCS: 36415; 71045; 80053; 85025; 87804; 87804-59; 99283; 99285-25; U0002

== ENCOUNTER 2021-01-18 14:02 | Emergency (ER) | payer MEDICAID ==
[2021-01-18] MEDS ORDERED: Ketorolac 60 MG/2 ML SDV IM STA (14:16)
[2021-01-18] MEDS ORDERED: predniSONE 20 MG Tab PO STA (14:16)
[2021-01-18] MEDS ORDERED: Cyclobenzaprine 10 MG Tab PO STA (14:16)
--- NOTE | 2021-01-18 14:25 | EDM.PDOC ---
ED HPI GENERAL MEDICAL PROBLEM - General Stated Complaint: BACK PAIN Time Seen by Provider: 01/18/21 14:05 Source of Information: Reports: Patient History Limitations: Reports: No Limitations - History of Present Illness INITIAL COMMENTS - FREE TEXT/NARRATIVE: Patient presented to the ED because of low back pain which started a week ago. The pain is sharp and squeezing, 10/10, over the lumbar area radiating to his right buttock,thigh and leg. There is no lost of bladder or bowel control. - Related Data Allergies Allergy/AdvReac Type Severity Reaction Status Date / Time codeine phosphate Allergy Stomach Verified 10/19/20 12:24 [From Tylenol-Codeine #3] Ache ketorolac tromethamine Allergy Stomach Verified 10/19/20 12:24 [From Toradol] Upset lisinopril Allergy Cough Verified 10/19/20 12:24 tramadol Allergy Vomiting Verified 10/19/20 12:24 Home Meds: Home Meds Losartan/Hydrochlorothiazide [Losartan-HCTZ 100-12.5 MG] 1 each PO DAILY 10/12/18 [History] Gabapentin [Neurontin] 900 mg PO TID 03/24/19 [History] Metoprolol Succinate 50 mg PO DAILY 10/17/19 [History] FLUoxetine [PROzac] 10 mg PO DAILY 10/19/20 [History] Ondansetron [Zofran ODT] 4 mg PO Q4H PRN #5 tab.dis 10/19/20 [Rx] predniSONE [Prednisone] 40 mg PO DAILY #10 tablet 10/19/20 [Rx] Cyclobenzaprine [Flexeril] 10 mg PO TID PRN #30 tab 01/18/21 [Rx] Ibuprofen 800 mg PO TID PRN #30 tablet 01/18/21 [Rx] predniSONE [Prednisone] 40 mg PO DAILY #30 tablet 01/18/21 [Rx] Past Medical History HEENT History: Reports: Other (See Below) Other HEENT History: Dental problems. Cardiovascular History: Reports: Hypertension Respiratory History: Reports: Asthma Gastrointestinal History: Reports: PUD Musculoskeletal History: Reports: Fracture Other Musculoskeletal History: fx R gt toe Neurological History: Reports: Concussion, Neuropathy, Peripheral, Other (See Below) Other Neuro History: 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 Psychiatric History: Reports: Anxiety, Depression, Panic Attack Endocrine/Metabolic History: Reports: Obesity/BMI 30+ - Infectious Disease History Infectious Disease History: Reports: Chicken Pox, MRSA - Past Surgical History HEENT Surgical History: Reports: Oral Surgery GI Surgical History: Reports: None Musculoskeletal Surgical History: Reports: Other (See Below) Other Musculoskeletal Surgeries/Procedures:: r toe surgery Social & Family History - Family History Family Medical History: No Pertinent Family History - Caffeine Use Caffeine Use: Reports: Soda - Living Situation & Occupation Living situation: Reports: with Significant Other ED ROS GENERAL - Review of Systems Review Of Systems: See Below Constitutional: Reports: No Symptoms HEENT: Reports: No Symptoms Respiratory: Reports: No Symptoms Cardiovascular: Reports: No Symptoms Endocrine: Reports: No Symptoms GI/Abdominal: Reports: No Symptoms : Reports: No Symptoms Musculoskeletal: Reports: Back Pain Skin: Reports: No Symptoms Neurological: Reports: No Symptoms ED EXAM,LOWER BACK PAIN/INJURY - Physical Exam Exam: See Below Exam Limited By: No Limitations General Appearance: Alert, No Apparent Distress Eye Exam: Bilateral Eye: PERRL Ears: Normal External Exam, Normal Canal Throat/Mouth: Normal Inspection, Normal Lips Head: Atraumatic, Normocephalic Neck: Normal Inspection, Supple, Non-Tender, Full Range of Motion Respiratory/Chest: No Respiratory Distress, Lungs Clear, Normal Breath Sounds, No Accessory Muscle Use, Chest Non-Tender Cardiovascular: Normal Peripheral Pulses, Regular Rate, Rhythm, No Edema, No Gallop, No JVD, No Murmur GI/Abdominal: Normal Bowel Sounds, Soft, Non-Tender, No Organomegaly, No Distention, No Abnormal Bruit Back Exam: Normal Inspection, Full Range of Motion Extremities: Normal Inspection, Normal Range of Motion, Non-Tender Neurological: Alert, Normal Mood/Affect, Normal Dorsiflexion, CN II-XII Intact, Normal Plantar Flexion, Normal Gait Course - Vital Signs Text/Narrative:: Toradol 60 mg IM Prednisone 20 mg, 2 po x1 Flexeril 10 mg po x1 - Orders/Labs/Meds Orders: Active Orders 24 hr Category Date Time Status Cyclobenzaprine [Flexeril] Med 01/18/21 14:16 Stat 10 mg PO NOW STA Ketorolac [Toradol] Med 01/18/21 14:16 Stat 60 mg IM NOW STA predniSONE Med 01/18/21 14:16 Stat 40 mg PO NOW STA Departure - Departure Time of Disposition: 15:00 Disposition: Home, Self-Care 01 Condition: Good Clinical Impression: Low back pain, Radiculopathy - Discharge Information Prescriptions: Cyclobenzaprine [Flexeril] 10 mg PO TID PRN #30 tab PRN Reason: Spasms Ibuprofen 800 mg PO TID PRN #30 tablet PRN Reason: Pain predniSONE [Prednisone] 40 mg PO DAILY #30 tablet Instructions: Radicular Pain, Acute Back Pain, Adult Additional Instructions: Please read discharge instructions on low back pain and radiculopathy Apply heat, it help relax your muscle Take all the following medications at same time for better pain relief: Flexeril 10 mg, Ibuprofen 800 mg, tylenol 1000 mg every 8 hours as needed for spasms and pain Prednisone 20 mg, tablets every morning starting tomorrw for 5 days Follow up with your doctor next week - My Orders Last 24 Hours: My Active Orders 01/18/21 14:16 Cyclobenzaprine [Flexeril] 10 mg PO NOW STA Ketorolac [Toradol] 60 mg IM NOW STA predniSONE 40 mg PO NOW STA - Assessment/Plan Last 24 Hours: My Active Orders 01/18/21 14:16 Cyclobenzaprine [Flexeril] 10 mg PO NOW STA Ketorolac [Toradol] 60 mg IM NOW STA predniSONE 40 mg PO NOW STA
[2021-01-18 15:38] VITALS: BP 153/99; PULSE 111
== END 2021-01-18 15:20 | disposition home or self-care (01) ==
LOC: FB.ED 14:02
DX: M54.16 Radiculopathy, lumbar region (principal); I10 Essential (primary) hypertension; J45.909 Unspecified asthma, uncomplicated; G62.9 Polyneuropathy, unspecified; E66.9 Obesity, unspecified; Z68.41 Body mass index [BMI] 40.0-44.9, adult; Z88.5 Allergy status to narcotic agent; Z88.6 Allergy status to analgesic agent; Z88.8 Allergy status to other drugs, medicaments and biological substances
CPT/HCPCS: 96372; 99283; A9270; J1885; J7512

== ENCOUNTER 2022-04-06 14:13 | Emergency (ER) | payer MEDICAID ==
[2022-04-06] MEDS ORDERED: Penicillin V Potassium 250 MG Tab PO STA (14:38)
[2022-04-06 19:24] VITALS: BP 136/84; PULSE 84
== END 2022-04-06 15:10 | disposition home or self-care (01) ==
LOC: FB.ED 14:13
DX: K04.7 Periapical abscess without sinus (principal); I10 Essential (primary) hypertension; E66.9 Obesity, unspecified; Z68.42 Body mass index [BMI] 45.0-49.9, adult; Z79.899 Other long term (current) drug therapy; Z88.5 Allergy status to narcotic agent; Z88.1 Allergy status to other antibiotic agents; Z88.8 Allergy status to other drugs, medicaments and biological substances
CPT/HCPCS: 99282; A9270-GY

== ENCOUNTER 2022-07-05 18:40 | Emergency (ER) | payer MEDICAID ==
[2022-07-05] MEDS ORDERED: Acetaminophen/HYDROcodone 325-5 MG Tab PO ONE (18:41)
[2022-07-05] MEDS ORDERED: Lidocaine 2% Viscous Solution 15 ML UD ONE (18:58)
[2022-07-05 19:01] VITALS: BP 138/101; PULSE 102
[2022-07-05] MEDS ORDERED: Amoxicillin/Clavulanate K 875-125 MG Tab PO ONE (19:09)
[2022-07-05] MEDS ORDERED: Lidocaine 2% Viscous Solution 15 ML UD PO ONE (19:09)
== END 2022-07-05 19:38 | disposition home or self-care (01) ==
LOC: FB.ED 18:40
DX: K04.7 Periapical abscess without sinus (principal); K02.9 Dental caries, unspecified; I10 Essential (primary) hypertension; E66.9 Obesity, unspecified; Z68.30 Body mass index [BMI] 30.0-30.9, adult; Z88.5 Allergy status to narcotic agent; Z88.8 Allergy status to other drugs, medicaments and biological substances
CPT/HCPCS: 99282; A9270; 99281